=== PATIENT | female | born 1940 | race Caucasian/White ===

== ENCOUNTER 2022-07-27 16:01 | Emergency (ER) | payer MEDICARE, SELFPAY ==
--- NOTE | ~2022-07-27 | XR_ITS ---
EXAMINATION: XR chest 2V DATE: 07/27/2022 16:55 INDICATION: Cough and shortness of breath TECHNIQUE: PA and lateral views of the chest are obtained. COMPARISON: None available FINDINGS: The lungs are free of acute opacities. No pleural effusion or pneumothorax. The cardiomedia stinal silhouette is normal. There is moderate thoracic spondylosis. Surgical changes are noted in th e upper abdomen. IMPRESSION: 1. No acute cardiopulmonary abnormality. Reviewed, dictated and finalized at location B.
[2022-07-27 16:20] VITALS: BP 125/65; PULSE 86; RESP 16; TEMP 37.1; O2SAT 97
--- NOTE | 2022-07-27 16:23 | ECG_ITS ---
Measurements Intervals [place] Rate: 80 P: 18 NM: 174 QRS: -13 QRSD: 125 T: 0 QT: 389 QTc: 450 Interpretive Statements SINUS RHYTHM VENTRICULAR PREMATURE COMPLEX RIGHT BUNDLE BRANCH BLOCK ABNORMAL ECG NO PREVIOUS ECG AVAILABLE FOR COMPARISON Electronically Signed On 07-27-2022 20:57:02 CDT by Ruddy Early D.O.
[2022-07-27 16:40] LABS: Basophils Percent Auto 0.4 % (0.2-1.2); Eosinophils Percent Auto 1.4 % (0-4.4); Hematocrit 26.8 % (37.0-47.0); Hemoglobin 7.8 g/dL (12.0-15.0); Immature Granulocyte Absolute 0.01 K/mm3 (0.00-0.031); Immature Granulocyte Percent A 0.4 % (0-0.5); Lymphocytes Absolute Auto 0.36 K/mm3 (0.9-3.2); Mean Corpuscular HGB Conc 29.1 g/dl (32-36); Mean Corpuscular Hemoglobin 20.6 pg (26-34); Mean Corpuscular Volume 70.7 fl (80-100); Mean Platelet Volume 10.8 fl (7.4-10.4); Monocytes Absolute Auto 0.4 K/mm3 (0.1-0.6); Monocytes Percent Auto 14.9 % (2.6-8.5); Neutrophils Absolute Auto 1.9 K/mm3 (1.3-6.7); Neutrophils Percent Auto 69.9 % (45.5-73.1); Platelet Count Result 186 k/mm3 (150-375); Red Blood Count 3.79 M/mm3 (4.2-5.4); Red Cell Distribution Width 18.4 % (11.5-14.5); White Blood Count 2.8 K/mm3 (4.5-10.0)
[2022-07-27 16:55] LABS: Alanine Aminotransferase 32 U/L (6-35); Albumin Level 3.4 g/dL (3.5-5.1); Alkaline Phosphatase 187 U/L (38-126); Anion Gap 10 mmol/L (8-16); Aspartate Amino Transferase 83 U/L (14-36); Bilirubin,Total 0.4 mg/dL (0.2-1.3); Blood Urea Nitrogen 19 mg/dL (7-17); Calcium 8.1 mg/dL (8.4-10.2); Carbon Dioxide 23 mmol/L (22-30); Chloride 98 mmol/L (98-107); Estimated Glomerular Filt Rate > 60; Glucose 145 mg/dL (65-110); Potassium 4.5 mmol/L (3.4-5.0); Sodium 131 mmol/L (137-145)
[2022-07-27 17:06] LABS: Platelet Estimate Adequate (Adequate)
[2022-07-27 17:07] LABS: Anisocytosis 2+ (NORMAL); Hypochromasia 1+ (NORMAL)
[2022-07-27 17:08] LABS: Ovalocytes 1+ (NORMAL)
[2022-07-27 17:16] LABS: SARS-CoV-2 RNA PCR Positive
[2022-07-27 19:37] VITALS: BP 122/67; PULSE 76; RESP 18; O2SAT 98
--- NOTE | 2022-07-27 20:14 | ED.GENADULT ---
HPI - General Adult General Chief complaint: Shortness of Breath/Dyspnea Stated complaint: Cough, SOB Time Seen by Provider: 07/27/22 19:46 History of Present Illness HPI narrative: This is an 82-year-old female presenting ED with chief complaint of cough and shortness breath x4 days. Patient says that her daughter was recently diagnosed with COVID. Since then she has been having a dry cough, shortness of breath, fever chills and generalized weakness. Patient states that her condition has been improving at this time she feels well. Patient has a history of liver cancer which she has undergone chemo with her last treatment being 3-4 weeks ago. Oncologist is at [facility]. Patient has been vaccinated against COVID-19 and boosted. The patient denies nausea vomiting diarrhea. She has been having adequate p.o. intake. Review of Systems Review of Systems: CONSTITUTIONAL: Denies night sweats. EYES: No eye pain ENT: Denies rhinorrhea CARDIOVASCULAR: Denies palpitations RESPIRATORY: Denies hemoptysis GASTROINTESTINAL: Denies hematemesis GENITOURINARY: Denies hematuria. SKIN: Denies rash MUSCULOSKELETAL: Denies myalgia. NEUROLOGIC: Denies weakness. PSYCHIATRIC: Denies delusions [facility] Past Medical History Medical History Coronary artery disease Diabetes HTN (hypertension) Liver cancer Social History Social History (Updated 07/27/22 @ 20:21 by Alfonso Clinton MD) Social History: Patient denies alcohol tobacco or drug use. Exam Narrative: APPEARANCE: No apparent distress. Patient is very polite during her interview. She is speaking to me in full sentences. Head atraumatic. EYES: PERRLA/EOMI, NOSE: Normal no drainage NECK: Supple, Trachea midline RESPIRATORY: Patient's lung sounds are clear in all [place]. She has no increased work of breathing. She is 98% on room air. She is speaking to me in full sentences without any evidence of dyspnea. CARDIOVASCULAR: S1S2 appreciated , no peripheral edema ABDOMINAL: Soft, nontender, nondistended, MUSCULOSKELETAl: No obvious deformities NEURO: Alert. Moving 4/4 extremities SKIN:: Warm, dry. Normal color PSYCHIATRIC: Normal affect Course Vital Signs Vital signs: Vital Signs Temperature 98.7 F 07/27/22 16:20 Pulse Rate 86 07/27/22 16:20 Respiratory Rate 16 07/27/22 16:20 Blood Pressure 125/65 07/27/22 16:20 Pulse Oximetry 97 07/27/22 16:20 Oxygen Delivery Room Air 07/27/22 16:20 Temperature 98.7 F 07/27/22 16:20 Pulse Rate 76 07/27/22 19:37 Respiratory Rate 18 07/27/22 19:37 Blood Pressure 122/67 07/27/22 19:37 Pulse Oximetry 98 07/27/22 19:37 Oxygen Delivery Room Air 07/27/22 16:20 Medical Decision Making MDM Narrative Medical decision making narrative: This is an 82-year-old female presenting to the ED with 4 days of COVID-19 infection. While patient was reporting shortness of breath over the 1st 2 days she says that she has improved drastically since then. The patient has been undergoing chemo and is pancytopenic with a WBC of 2.8, hemoglobin of 7.8. However she is well-appearing and afebrile at this time with stable vital signs and not requiring supplementary oxygen. her chest x-ray has no evidence of infiltrates. I discussed the option of admitting her to observation versus discharging her home the patient would prefer to go home. She has been given strict return precautions for condition has worsened to return emergency department immediately. The patient has a history of liver cancer and is fully vaccinated and boosted will not be pursuing Paxlovid on an outpatient basis. Vital Signs Vital Signs: Vital Signs Temperature 98.7 F 07/27/22 16:20 Pulse Rate 86 07/27/22 16:20 Respiratory Rate 16 07/27/22 16:20 Blood Pressure 125/65 07/27/22 16:20 Pulse Oximetry 97 07/27/22 16:20 Oxygen Delivery Room Air 07/27/22 16:20 Temperature 98.7 F
== END 2022-07-27 20:34 | disposition home or self-care (01) ==
PROVIDERS: Emergency Medicine; Emergency Provider Emergency Medicine
DX: U07.1 COVID-19 (principal); C22.9 Malignant neoplasm of liver, not specified as primary or secondary; E11.9 Type 2 diabetes mellitus without complications; I10 Essential (primary) hypertension; D61.818 Other pancytopenia; R94.31 Abnormal electrocardiogram [ECG] [EKG]
CPT/HCPCS: 36415; 71046; 80053; 85025; 93005; 99283; C9803; U0003; U0005

== ENCOUNTER 2023-02-09 13:38 | Emergency (ER) | payer MEDICARE, SELFPAY ==
--- NOTE | ~2023-02-09 | CT_ITS ---
EXAMINATION: CT abdomen pelvis wo con DATE: 02/09/2023 14:52 INDICATION: Right flank pain TECHNIQUE: Computed tomography (CT) of the abdomen and pelvis was performed without intravenous contr ast. The dose-length product was 212.06 mGy-cm. Automated exposure control and iterative reconstructi on technique were employed. COMPARISON: No prior studies for comparison. . FINDINGS: Small right pleural effusion. Right lower lobe atelectasis. Heart size normal. Moderate ath erosclerosis without evidence for aneurysm. There is atrophy of the right abdominal wall musculature. There is probable cirrhosis of the liver. There is a 9 mm densely calcified splenic artery aneurysm. There is a second calcified aneurysm measuring 11 mm There are calcified upper abdominal lymph nodes , likely chronic granulomatous disease. There are calcified granulomas of the right kidney. There is splenomegaly. There is atrophy of the right kidney. There are multiple nonobstructing right renal sto dominick. No ureteral stones or significant hydronephrosis. Nonobstructive bowel gas pattern. There is a s oft tissue nodule adjacent to the lower liver margin laterally measuring 1.5 cm, image 54. There post operative changes consistent with gastric bypass. There are multiple mesenteric lymph nodes, nonspeci fic. Mild superior endplate compression deformity of L4, likely chronic. The appendix is not positive ly visualized. There is no pericecal inflammatory change to suggest appendicitis. Nonobstructive bow el pattern. IMPRESSION: 1. Nonobstructing right nephrolithiasis. No hydronephrosis. 2: Small right pleural effusion. 3: Probable cirrhosis of the liver with splenomegaly. 4: Soft tissue nodule right upper abdomen adjacent to the liver margin measuring 1.5 cm, likely a lym ph node. Mild mesenteric lymphadenopathy. 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 Reviewed, dictated and finalized at location A. IMPRESSION: 1. Nonobstructing right nephrolithiasis. No hydronephrosis. 2: Small right pleural effusion. 3: Probable cirrhosis of the liver with splenomegaly. 4: Soft tissue nodule right upper abdomen adjacent to the liver margin measurin g 1.5 cm, likely a lymph node. Mild mesenteric lymphadenopathy. 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
[2023-02-09 13:41] VITALS: BP 171/77; PULSE 76; RESP 18; TEMP 36.8; O2SAT 100
--- NOTE | 2023-02-09 14:17 | ED.BACK ---
HPI - Back Pain/Injury General Chief Complaint: Back Pain/Injury Stated Complaint: right flank pain for four months Time Seen by Provider: 02/09/23 13:57 History of Present Illness HPI Narrative: 82-year-old female presents to the emergency room today for complaints of right flank pain. She says that she has been having this pain for the past 4 months ever since she had a fall. She did not see anybody immediately after the fall but did go to [facility] in [place] about 2 months ago. She said that they did x-rays there. She was admitted at that time due to anemia and needing blood transfusion. She says that they thought she may have had a bleeding ulcer. She says that she has been taking ibuprofen as needed for the pain. No dysuria or hematuria. Pt has a history of liver cancer. Related Data Allergies Allergy/AdvReac Type Severity Reaction Status Date / Time No Known Allergies Allergy Verified 02/09/23 14:21 Review of Systems Review of Systems: CONSTITUTIONAL: Denies fever, chills, or sweats. EYES: Denies visual changes, redness, or discharge. ENT: Denies rhinorrhea, congestion, sore throat, or otalgia. CARDIOVASCULAR: Denies chest pain, palpitations, or edema. RESPIRATORY: Denies cough or dyspnea. GASTROINTESTINAL: Denies abdominal pain, nausea, vomiting, or diarrhea. GENITOURINARY: Denies dysuria or hematuria. SKIN: Denies rash or itching. MUSCULOSKELETAL: right flank pain NEUROLOGIC: Denies headache, numbness, dizziness, or weakness. PSYCHIATRIC: Denies anxiety or depression. PMFSH Past Medical History Medical History Coronary artery disease Diabetes HTN (hypertension) Liver cancer Social History Social History Social History: Patient denies alcohol tobacco or drug use. Exam Narrative: GENERAL: Well-appearing, well-nourished, and in no acute distress. HEAD: Normocephalic, atraumatic. EYES: PERRLA and EOMI. NECK: Supple. No adenopathy or masses. No carotid bruits or JVD CHEST: Clear to auscultation. No respiratory distress. No wheezes rales or rhonchi HEART: Regular rate and rhythm. No murmur heard. Normal peripheral pulses. ABDOMEN: Soft, nontender, nondistended, normal active bowel sounds. right flank tenderness Back: No midline spine tenderness EXTREMITIES: Normal range of motion. No edema. SKIN: Warm, dry, no rash. Pale. NEURO: No focal deficits. Alert and oriented x3. PSYCH: Normal mood and affect. Course Vital Signs Vital signs: Vital Signs Temperature 36.8 C 02/09/23 13:41 Pulse Rate 76 02/09/23 13:41 Respiratory Rate 18 02/09/23 13:41 Blood Pressure 171/77 H 02/09/23 13:41 Pulse Oximetry 100 02/09/23 13:41 Oxygen Delivery Room Air 02/09/23 13:41 Temperature 36.8 C 02/09/23 13:41 Pulse Rate 76 02/09/23 13:41 Respiratory Rate 18 02/09/23 13:41 Blood Pressure 171/77 H 02/09/23 13:41 Pulse Oximetry 100 02/09/23 13:41 Oxygen Delivery Room Air 02/09/23 13:41 MDM - Back Pain/Injury MDM Narrative Medical decision making narrative: No findings on work up to explain patient pain. All results discussed with patient. She is aware of abnormal liver and spleen findings. She reports that she has an upcoming visit with her liver specialist in the next couple of weeks. Differential Diagnosis Differential diagnosis: Likely lumbar radiculopathy, strain of lumbar region, renal colic, pyelonephritis and thoracic back pain Lab Data Attestation: I reviewed the patient's lab results. 02/09/23 14:41 02/09/23 14:41 Labs: Lab Results 02/09/23 02/09/23 02/09/23 Range/Units 14:41 14:41 16:02 WBC 4.3 L (4.5-10.0) K/mm3 RBC 4.08 L (4.2-5.4) M/mm3 Hgb 8.3 L (12.0-15.0) g/dL Hct 29.3 L (37.0-47.0) % MCV 71.8 L (80-100) fl MCH 20.3 L (26-34) pg MCHC 28.3 L (32-36) g/dl RDW 20.2 H
[2023-02-09] MEDS: HYDROcodone/acetaminophen (*CRX) 5-325 MG TABLET 1 TAB PO (14:45)
[2023-02-09] MEDS: Please add drug allergy info to patient profile. 1 EACH XX (14:45)
[2023-02-09 14:49] LABS: Basophils Percent Auto 0.5 % (0.2-1.2); Eosinophils Percent Auto 0.9 % (0-4.4); Hematocrit 29.3 % (37.0-47.0); Hemoglobin 8.3 g/dL (12.0-15.0); Immature Granulocyte Absolute 0.01 K/mm3 (0.00-0.031); Immature Granulocyte Percent A 0.2 % (0-0.5); Lymphocytes Absolute Auto 0.49 K/mm3 (0.9-3.2); Lymphocytes Percent Auto 11.4 % (18.3-44.2); Mean Corpuscular HGB Conc 28.3 g/dl (32-36); Mean Corpuscular Hemoglobin 20.3 pg (26-34); Mean Corpuscular Volume 71.8 fl (80-100); Monocytes Absolute Auto 0.4 K/mm3 (0.1-0.6); Monocytes Percent Auto 9.1 % (2.6-8.5); Neutrophils Absolute Auto 3.4 K/mm3 (1.3-6.7); Neutrophils Percent Auto 77.9 % (45.5-73.1); Platelet Count Result 168 k/mm3 (150-375); Red Blood Count 4.08 M/mm3 (4.2-5.4); Red Cell Distribution Width 20.2 % (11.5-14.5); White Blood Count 4.3 K/mm3 (4.5-10.0)
[2023-02-09 15:03] LABS: Alanine Aminotransferase 51 U/L (6-35); Albumin Level 4.1 g/dL (3.5-5.1); Alkaline Phosphatase 443 U/L (38-126); Anion Gap 8 mmol/L (8-16); Aspartate Amino Transferase 155 U/L (14-36); Bilirubin,Total 0.8 mg/dL (0.2-1.3); Blood Urea Nitrogen 18 mg/dL (7-17); Calcium 8.9 mg/dL (8.4-10.2); Carbon Dioxide 26 mmol/L (22-30); Chloride 101 mmol/L (98-107); Estimated Glomerular Filt Rate > 60; Glucose 216 mg/dL (65-110); Sodium 135 mmol/L (137-145)
[2023-02-09 15:15] LABS: Platelet Estimate Adequate (Adequate)
[2023-02-09 15:16] LABS: Anisocytosis 1+ (NORMAL); Hypochromasia 1+ (NORMAL); Ovalocytes 1+ (NORMAL); Schistocytes None Seen (NORMAL)
[2023-02-09 16:13] LABS: Appearance Urine Cloudy (Clear); Bacteria Urine 4+ /hpf; Bilirubin Urine Negative (Negative); Blood Urine Negative (Negative); Color Urine Dark Yellow (Yellow); Glucose Urine UA 2+ mg/dL (Negative); Ketones Urine Negative (Negative); Leukocyte Esterase Ur Trace LEU/UL (Negative); Nitrate Urine Negative (Negative); Non Pathogenic Casts 0-2; Protein Urine Trace mg/dL (Negative); RBC Urine 0-2 /hpf (0-2); Specific Grav Ur 1.033 (1.001-1.035); Squamous Epithelial Cell Urine Few /hpf (Few); pH Urine 5.5 (5.0-9.0)
[2023-02-09 16:19] LABS: Add Urine Microscopic? YES
== END 2023-02-09 16:34 | disposition home or self-care (01) ==
PROVIDERS: Emergency Provider Nurse Practitioner Family; PCP Family Medicine
DX: R10.9 Unspecified abdominal pain (principal); G89.29 Other chronic pain; I25.10 Atherosclerotic heart disease of native coronary artery without angina pectoris; I10 Essential (primary) hypertension; E11.9 Type 2 diabetes mellitus without complications; Z85.05 Personal history of malignant neoplasm of liver; N20.0 Calculus of kidney; I72.8 Aneurysm of other specified arteries; R93.5 Abnormal findings on diagnostic imaging of other abdominal regions, including retroperitoneum; R93.2 Abnormal findings on diagnostic imaging of liver and biliary tract
CPT/HCPCS: 36415; 74176; 80053; 81001; 85025; 85055; 87086; 99284; A9270

== ENCOUNTER 2023-02-20 08:36 | Emergency (ER) | payer MEDICARE, SELFPAY ==
--- NOTE | ~2023-02-20 | CT_ITS ---
EXAMINATION: CTA chest abdomen pelvis DATE: 02/20/2023 10:06 INDICATION: Epigastric and chest pain. Evaluate for possible aortic dissection. TECHNIQUE: Computed tomography angiography (CTA) of the chest, abdomen and pelvis was performed with 100 mL Omnipaque-350 intravenous contrast timed to evaluate the pulmonary arteries. Coronal maximum i ntensity projection 3D-reconstructions were created by the technologist. Automated exposure control a nd iterative reconstruction technique were employed. Exam dose: 426.99 mGy-cm total exam DLP. COMPARISON: 02/09/2023 CT abdomen pelvis FINDINGS: No thoracic aortic aneurysm or dissection. No abdominal aortic aneurysm or dissection. Large right pleural effusion with prominent right lower lobe atelectasis. There is mild dependent ate lectasis of the right upper lobe. The lungs are otherwise essentially clear. No hilar or mediastinal mass lesion or lymphadenopathy is detected. There is extensive abnormal heterogeneous density of the hepatic dome suggesting large hepatocellular carcinoma, with abnormal irregular nodular soft tissue thickening of the right diaphragm suggesting tumor invasion. In addition, there is evidence of peritoneal mass in the paracolic gutter area in the right upper quadrant, suggesting metastatic malignancy. There is a 2.3 x 2.2 cm mass density between the inferomedial aspect of the liver and anterior upper pole the right kidney, the lateral margin of the right adrenal gland. Differential diagnosis includes hepatic neoplasm, exophytic hypernephroma, metastatic adenopathy. Surface nodularity of the liver suggests cirrhosis. There is splenomegaly. There are prominent varice s along the distal esophagus and upper abdominal varices. MR liver examination is recommended. There is mild ascites along the lateral aspect of the liver and in the right paracolic gutter, with m inimal free fluid in the pelvis. No pancreatic mass lesion, calcification or pancreatic duct dilatation is detected. Pinpoint nonobstructing lower pole right renal calculus. 10 mm right renal cyst. Scarring at the lowe r pole of the right kidney. The left kidney is unremarkable. No hydronephrosis of either kidney. The urinary bladder is unremarka ble. Calcified uterine fibroid. Normal caliber of the abdominal aorta. Otherwise no intraperitoneal or retroperitoneal or pelvic mass lesion or adenopathy. Status post right partial colectomy. No bowel obstruction or intraperitoneal free air. Likely chronic mild anterior wedging at T11. Severe degenerative disc disease at T11-12 and L5-S1. Mild likely chronic compression fracture deformity of L4. Degenerative changes apophyseal joints in the lower lumbar and lumbosacral area with associated grade 1 anterolisthesis at L4-5. IMPRESSION: Large right hepatocellular carcinoma is suspected, with invasion diaphragm and right upp er quadrant peritoneum 2.3 cm mass between the liver and kidney which may be of hepatic origin or possibly exophytic hyperne phroma Cirrhosis, splenomegaly, varices, consistent with portal venous hypertension Consider MR liver for further examination Large right pleural effusion, right lower lobe atelectasis No thoracic or abdominal aortic aneurysm or dissection Pinpoint nonobstructing right renal calculus 10 mm right renal cyst Mild right renal scarring Calcified uterine fibroid Reviewed, dictated and finalized at Location A. Reviewed, dictated and finalized at location A. IMPRESSION: Large right hepatocellular carcinoma is suspected, with invasion d iaphragm and right upper quadrant peritoneum 2.3 cm mass between the liver and kidney which may be of hepatic origin or poss ibly exophytic hypernephroma Cirrhosis, splenomegaly, varices, consistent with
[2023-02-20 08:38] VITALS: BP 163/84; PULSE 68; RESP 16; TEMP 36.6; O2SAT 98
[2023-02-20 08:52] VITALS: BP 147/77; PULSE 67; RESP 15; O2SAT 99
[2023-02-20 09:10] LABS: Basophils Percent Auto 0.4 % (0.2-1.2); Eosinophils Absolute Auto 0.1 K/mm3 (0-0.3); Eosinophils Percent Auto 2.2 % (0-4.4); Hemoglobin 8.1 g/dL (12.0-15.0); Immature Granulocyte Absolute 0.01 K/mm3 (0.00-0.031); Immature Granulocyte Percent A 0.2 % (0-0.5); Immature Platelet Fraction Pct 4.6 % (0.9-11.2); Lymphocytes Absolute Auto 0.71 K/mm3 (0.9-3.2); Lymphocytes Percent Auto 15.3 % (18.3-44.2); Mean Corpuscular HGB Conc 27.9 g/dl (32-36); Mean Corpuscular Hemoglobin 19.6 pg (26-34); Mean Corpuscular Volume 70.2 fl (80-100); Mean Platelet Volume 10.7 fl (7.4-10.4); Monocytes Absolute Auto 0.4 K/mm3 (0.1-0.6); Monocytes Percent Auto 9.5 % (2.6-8.5); Neutrophils Absolute Auto 3.4 K/mm3 (1.3-6.7); Neutrophils Percent Auto 72.4 % (45.5-73.1); Platelet Count Result 283 k/mm3 (150-375); Red Blood Count 4.13 M/mm3 (4.2-5.4); Red Cell Distribution Width 19.9 % (11.5-14.5); White Blood Count 4.6 K/mm3 (4.5-10.0)
[2023-02-20 09:18] LABS: Alanine Aminotransferase 32 U/L (6-35); Albumin Level 3.6 g/dL (3.5-5.1); Alkaline Phosphatase 463 U/L (38-126); Anion Gap 2 mmol/L (8-16); Aspartate Amino Transferase 88 U/L (14-36); Bilirubin,Total 0.7 mg/dL (0.2-1.3); Blood Urea Nitrogen 19 mg/dL (7-17); Calcium 8.6 mg/dL (8.4-10.2); Carbon Dioxide 29 mmol/L (22-30); Chloride 103 mmol/L (98-107); Estimated Glomerular Filt Rate > 60; Glucose 175 mg/dL (65-110); Lipase 99 U/L (23-300); Potassium 4.1 mmol/L (3.4-5.0); Sodium 134 mmol/L (137-145)
--- NOTE | 2023-02-20 09:23 | ECG_ITS ---
Measurements Intervals [place] Rate: 65 P: 16 LA: 189 QRS: -14 QRSD: 135 T: 19 QT: 451 QTc: 470 Interpretive Statements SINUS RHYTHM RIGHT BUNDLE BRANCH BLOCK ABNORMAL ECG COMPARED TO ECG 07/27/2022 16:27:02 NO SIGNIFICANT CHANGES Electronically Signed On 02-20-2023 15:32:04 CDT by Kris Montague M.D.
--- NOTE | 2023-02-20 09:33 | ED.ABDPAIN ---
HPI - Abdominal Pain General Chief Complaint: Abdominal Pain <Edgar Michel PA-C - Last Filed: 02/20/23 19:05> Stated Complaint: indigestion - woke w/ symptoms <MARKO Galvez Last Filed: 02/20/23 19:05> Time Seen by Provider: 02/20/23 08:58 <Edgar Michel PA-C - Last Filed: 02/20/23 19:05> Source: patient <MARKO Galvez Last Filed: 02/20/23 19:05> Mode of arrival: ambulatory <MARKO Galvez Last Filed: 02/20/23 19:05> Limitations: no limitations <MARKO Galvez Last Filed: 02/20/23 19:05> History of Present Illness HPI narrative: This is a 82-year-old female with past medical history of cirrhosis, liver cancer, diabetes, HTN, CAD who presents to the ED with chief complaint of epigastric pain beginning this morning after waking up. Patient states that she feels like she has indigestion, however it is worse than she has had in the past. She tried Tums with no relief. States the pain is located in the epigastrium and radiates superiorly into the central chest area. No further radiation of pain. Also endorses constipation with last bowel movement yesterday. Denies shortness of breath. Denies nausea/vomiting/diarrhea. Denies fevers, chills. <MARKO Galvez Last Filed: 02/20/23 19:05> Related Data Home Medications: Home Medications Medication Instructions Recorded Confirmed diclofenac sodium 1 % topical gel 2 g topical QID 02/19/23 02/19/23 mecobalamin (vitamin B12) 5,000 5,000 mcg PO DAILY 02/19/23 02/19/23 mcg chewable tablet metformin 500 mg tablet 1,000 mg PO DAILY 02/19/23 02/19/23 pantoprazole 40 mg tablet,delayed 40 mg PO QAM 02/19/23 02/19/23 release polysaccharide iron complex 150 mg 150 mg PO DAILY 02/19/23 02/19/23 iron capsule trazodone 150 mg tablet 150 mg PO QHS PRN 02/19/23 02/19/23 <Edgar Michel PA-C - Last Filed: 02/20/23 19:05> Allergies/Adverse Reactions: Allergies Allergy/AdvReac Type Severity Reaction Status Date / Time No Known Allergies Allergy Verified 02/20/23 08:40 <Edgar Michel PA-C - Last Filed: 02/20/23 19:05> Review of Systems Review of Systems: CONSTITUTIONAL: Denies fever, chills, or sweats. EYES: Denies visual changes, redness, or discharge. ENT: Denies rhinorrhea, congestion, sore throat, or otalgia. CARDIOVASCULAR: Denies chest pain, palpitations, or edema. RESPIRATORY: Denies cough or dyspnea. GASTROINTESTINAL: Endorses abdominal pain. denies nausea, vomiting, or diarrhea. GENITOURINARY: Denies dysuria or hematuria. SKIN: Denies rash or itching. MUSCULOSKELETAL: Denies back pain, joint pain, or myalgia. NEUROLOGIC: Denies headache, numbness, dizziness, or weakness. PSYCHIATRIC: Denies anxiety or depression. <Edgar Michel PA-C - Last Filed: 02/20/23 19:05> [facility] Past Medical History Medical History: Medical History (Updated 02/20/23 @ 12:31 by Edgar Michel PA-C) Cirrhosis of liver Coronary artery disease Diabetes HTN (hypertension) Liver cancer Tachycardia <Edgar Michel PA-C - Last Filed: 02/20/23 19:05> Social History Social History: Social History Social History: Patient denies alcohol tobacco or drug use. Smoking status: Never smoker Second hand tobacco smoke exposure: No Alcohol intake: never Substance use: never Substance use type: does not use Lack of Transportation: No Lack of Food: Never True Current Housing: I Have Housing Concerned About Future Housing: No Difficulty Paying Gas/Electric Bills: No Difficulty Paying for Meds: No Currently Unemployed: No Difficulty w/ Childcare or Family Care: No Living arrangements: with family Occupation/Education: retired Gender identity (if verbalized by the patient): Female Sexual Orientation (if Verbalized by the Patient): Straight or Heterosexual Spiritual care concerns: No <Edgar Michel PA-C - Last
[2023-02-20] MEDS: MAG HYDROX/AL HYDROX/SIMETH 30 ML UDC PO (09:39)
--- NOTE | 2023-02-20 09:39 | PC.NURSE ---
pt unable to provide urine sample at this time. Pt stated she believes she will be able to go in a few minutes .
[2023-02-20 09:49] LABS: Anisocytosis 1+ (NORMAL); Hypochromasia 1+ (NORMAL); Ovalocytes 1+ (NORMAL); Platelet Estimate Adequate (Adequate)
[2023-02-20 09:50] LABS: Burr Cells 1+ (NORMAL); Schistocytes None Seen (NORMAL)
[2023-02-20 09:58] LABS: Troponin I < 0.012 ng/mL (0.000-0.034)
[2023-02-20 10:15] LABS: Appearance Urine Clear (Clear); Bacteria Urine None Seen /hpf; Bilirubin Urine Negative (Negative); Blood Urine Negative (Negative); Color Urine Yellow (Yellow); Glucose Urine UA Negative (Negative); Ketones Urine Trace mg/dL (Negative); Leukocyte Esterase Ur Trace LEU/UL (Negative); Nitrate Urine Negative (Negative); Non Pathogenic Casts 0-2; Protein Urine Negative (Negative); RBC Urine 0-2 /hpf (0-2); Specific Grav Ur 1.029 (1.001-1.035); Squamous Epithelial Cell Urine None seen /hpf (Few)
[2023-02-20 10:19] LABS: Add Urine Microscopic? YES
[2023-02-20 11:00] VITALS: BP 155/67; PULSE 66; RESP 18; O2SAT 97
[2023-02-20 11:45] VITALS: BP 144/55; PULSE 66; RESP 18; O2SAT 97
[2023-02-20 12:24] LABS: Troponin I < 0.012 ng/mL (0.000-0.034)
[2023-02-20 13:04] VITALS: BP 146/63; PULSE 67; RESP 18; O2SAT 99
== END 2023-02-20 13:05 | disposition home or self-care (01) ==
PROVIDERS: Emergency Medicine; Emergency Provider Physician Assistant; PCP Family Medicine
DX: K21.9 Gastro-esophageal reflux disease without esophagitis (principal); C22.9 Malignant neoplasm of liver, not specified as primary or secondary; K74.60 Unspecified cirrhosis of liver; E11.9 Type 2 diabetes mellitus without complications; I10 Essential (primary) hypertension; I25.10 Atherosclerotic heart disease of native coronary artery without angina pectoris; Z79.84 Long term (current) use of oral hypoglycemic drugs
CPT/HCPCS: 36415; 71275; 74174; 80053; 81001; 83690; 84484; 85025; 85055; 87086; 87088; 93005; 99284; A9270; Q9967

== ENCOUNTER 2023-03-20 10:14 | Observation (INO) | payer MEDICARE, SELFPAY ==
[2023-03-20] VITALS (23 sets, daily range): BP systolic 116–158; BP diastolic 41–75; PULSE 63–80; RESP 14–27; TEMP 36–36.9; O2SAT 94–99; BMI 26.0
--- NOTE | ~2023-03-20 | US_ITS ---
EXAMINATION: US venous doppler [facility] DATE: 03/21/2023 10:53 INDICATION: Lower limb edema. TECHNIQUE: Grayscale ultrasound images without and with compression and Doppler ultrasound images of the bilateral lower extremity veins were obtained. COMPARISON: None. FINDINGS: The visualized portions of right common femoral vein, profunda (deep) femoral vein, femoral vein, pop liteal vein, peroneal veins, posterior tibial veins, and greater saphenous vein outflow are patent. The visualized portions of left common femoral vein, profunda femoral vein, femoral vein, popliteal v ein, peroneal veins, posterior tibial veins, and greater saphenous vein outflow are patent. IMPRESSION: 1. No deep venous thrombosis. Reviewed, dictated and finalized at location A.
--- NOTE | ~2023-03-20 | XR_ITS ---
EXAMINATION: XR chest 2V DATE: 03/20/2023 11:16 INDICATION: Anxiety. Back pain. TECHNIQUE: Frontal and lateral views of the chest were obtained. COMPARISON: Chest 2 views 07/27/2022, CT abdomen and pelvis 02/20/2023 FINDINGS: There are moderate-sized right and trace left pleural effusions. There are airspace opaciti es at right lung base. No pneumothorax. The heart size is normal. There are surgical clips in the abd omen. IMPRESSION: 1. Moderate-sized right and trace left pleural effusions, stable from 02/20/2023. 2. Airspace opacities at right lung base, consistent with atelectasis versus pneumonia. Reviewed, dictated and finalized at location A. IMPRESSION: 1. Moderate-sized right and trace left pleural effusions, stable from 02/20/2023. 2. Airspace opacities at right lung base, consistent with atelectasis versus pn eumonia.
--- NOTE | 2023-03-20 10:29 | ECG_ITS ---
Measurements Intervals [place] Rate: 71 P: 6 ND: 190 QRS: -22 QRSD: 145 T: -7 QT: 455 QTc: 495 Interpretive Statements SINUS RHYTHM RIGHT BUNDLE BRANCH BLOCK ABNORMAL ECG COMPARED TO ECG 02/20/2023 10:08:53 NO SIGNIFICANT CHANGES Electronically Signed On 03-20-2023 15:57:20 CDT by Ruddy Early D.O.
[2023-03-20] MEDS: ONDANSETRON INJ 4 MG/2 ML VIAL IV PUSH (10:38)
[2023-03-20 10:46] LABS: Basophils Percent Auto 0.5 % (0.2-1.2); Eosinophils Absolute Auto 0.1 K/mm3 (0-0.3); Eosinophils Percent Auto 0.8 % (0-4.4); Hemoglobin 8.1 g/dL (12.0-15.0); Immature Granulocyte Absolute 0.03 K/mm3 (0.00-0.031); Immature Granulocyte Percent A 0.4 % (0-0.5); Immature Platelet Fraction Pct 4.8 % (0.9-11.2); Lymphocytes Percent Auto 8.3 % (18.3-44.2); Mean Corpuscular HGB Conc 27.9 g/dl (32-36); Mean Corpuscular Hemoglobin 18.9 pg (26-34); Mean Corpuscular Volume 67.6 fl (80-100); Mean Platelet Volume 10.2 fl (7.4-10.4); Monocytes Absolute Auto 0.7 K/mm3 (0.1-0.6); Monocytes Percent Auto 8.4 % (2.6-8.5); Neutrophils Absolute Auto 6.9 K/mm3 (1.3-6.7); Neutrophils Percent Auto 81.6 % (45.5-73.1); Platelet Count Result 228 k/mm3 (150-375); Red Blood Count 4.29 M/mm3 (4.2-5.4); Red Cell Distribution Width 18.8 % (11.5-14.5); White Blood Count 8.5 K/mm3 (4.5-10.0)
--- NOTE | 2023-03-20 10:55 | ED.GENADULT ---
HPI - General Adult General Chief complaint: Unspecified Stated complaint: I feel like I'm dying Time Seen by Provider: 03/20/23 10:15 History of Present Illness HPI narrative: 82-year-old female with a history of hepatocellular carcinoma here for evaluation of anxiety. Patient states that she has felt panic and a general sensation of doom over the past week or so. She has a lot of anxiety around her health issues, which include hepatocellular carcinoma, CAD, DM. She is seeing a GI doctor at [facility] and does not take any medicines for HCC. Patient denies any specific complaints, particularly she denies any chest pain, shortness of breath. She has chronic abdominal and back pain, no worse than usual. She reports a little bit of nausea but no vomiting. She has had no fevers, chills, suicidal or homicidal ideation. She denies any illicit drug or alcohol use presently or in the past. Patient is a poor historian. she was seen here 02/15/23 and was found to have recurrence of her HCC with invasion into the diaphragm. This was discussed with her GI doctor at [facility] who agreed with outpatient f/u but she is unsure what was done. She is not currently on any treatment for this, believes chemotherapy may be started this month. Related Data Home Medications Medication Instructions Recorded Confirmed diclofenac sodium 1 % topical gel 2 g topical QID 02/19/23 02/19/23 mecobalamin (vitamin B12) 5,000 5,000 mcg PO DAILY 02/19/23 02/19/23 mcg chewable tablet metformin 500 mg tablet 1,000 mg PO DAILY 02/19/23 02/19/23 pantoprazole 40 mg tablet,delayed 40 mg PO QAM 02/19/23 02/19/23 release polysaccharide iron complex 150 mg 150 mg PO DAILY 02/19/23 02/19/23 iron capsule trazodone 150 mg tablet 150 mg PO QHS PRN 02/19/23 02/19/23 Allergies Allergy/AdvReac Type Severity Reaction Status Date / Time No Known Allergies Allergy Verified 03/20/23 10:21 Review of Systems Review of Systems: Gen.: Denies fevers or chills Eyes: Denies eye pain or visual change ENT: Denies congestion Respiratory: Denies shortness of breath or cough CV: Denies chest pain or palpitations GI: reports chronic abdominal pain and nausea denies burning, urgency, frequency or hematuria Musculoskeletal: Denies back pain or muscle pain Neuro: Denies numbness, tingling, weakness or focal weakness Skin: Denies rash Psych: Reports anxiety Except as documented, all other systems reviewed and negative [facility] Past Medical History Medical History Cirrhosis of liver Coronary artery disease Diabetes HTN (hypertension) Liver cancer Tachycardia Social History Social History Social History: Patient denies alcohol tobacco or drug use. Smoking status: Never smoker Second hand tobacco smoke exposure: No Alcohol intake: never Substance use: never Substance use type: does not use Lack of Transportation: No Lack of Food: Never True Current Housing: I Have Housing Concerned About Future Housing: No Difficulty Paying Gas/Electric Bills: No Difficulty Paying for Meds: No Currently Unemployed: No Difficulty w/ Childcare or Family Care: No Living arrangements: with family Occupation/Education: retired Gender identity (if verbalized by the patient): Female Sexual Orientation (if Verbalized by the Patient): Straight or Heterosexual Spiritual care concerns: No Exam Narrative: APPEARANCE: Very anxious appearing but no acute distress. Head: Normocephalic and atraumatic. EYES: PERRLA/EOMI, conjunctivae clear. There is fatiguable horizontal nystagmus with EOMs. NOSE: No nasal drainage EARS: External ear normal in appearance THROAT: Mucous membranes are dry. NECK: Supple. No adenopathy, no masses. RESPIRATORY: Airway patent, respirations nonlabored. Clear to auscultation bilaterally, no rales, rhonchi, wheezing. CARDIOVASC
[2023-03-20 11:02] LABS: Alanine Aminotransferase 32 U/L (6-35); Albumin Level 3.5 g/dL (3.5-5.1); Alkaline Phosphatase 333 U/L (38-126); Anion Gap 8 mmol/L (8-16); Aspartate Amino Transferase 73 U/L (14-36); Bilirubin,Total 0.9 mg/dL (0.2-1.3); Blood Urea Nitrogen 29 mg/dL (7-17); Calcium 8.2 mg/dL (8.4-10.2); Carbon Dioxide 23 mmol/L (22-30); Chloride 97 mmol/L (98-107); Estimated Glomerular Filt Rate > 60; Glucose 160 mg/dL (65-110); Lipase 50 U/L (23-300); Potassium 4.4 mmol/L (3.4-5.0); Sodium 128 mmol/L (137-145)
[2023-03-20 11:12] LABS: Anisocytosis 1+ (NORMAL); Hypochromasia 1+ (NORMAL); Microcytosis 2+ (NORMAL); Ovalocytes 1+ (NORMAL); Platelet Estimate Adequate (Adequate); Schistocytes None Seen (NORMAL)
[2023-03-20 11:14] LABS: Troponin I < 0.012 ng/mL (0.000-0.034)
[2023-03-20] MEDS: SODIUM CHLORIDE 0.9% IV 1,000 ML 999 ML IV CONT (11:17)
[2023-03-20 12:16] LABS: Add Urine Microscopic? YES; Appearance Urine Cloudy (Clear); Bacteria Urine 4+ /hpf; Bilirubin Urine Negative (Negative); Blood Urine Negative (Negative); Color Urine Yellow (Yellow); Glucose Urine UA Negative (Negative); Ketones Urine 2+ mg/dL (Negative); Leukocyte Esterase Ur Negative LEU/UL (Negative); Nitrate Urine Negative (Negative); Non Pathogenic Casts 0-2; Protein Urine 1+ mg/dL (Negative); RBC Urine 0-2 /hpf (0-2); Specific Grav Ur 1.024 (1.001-1.035); Squamous Epithelial Cell Urine Few /hpf (Few); WBC Urine 0-5 /hpf
[2023-03-20 12:18] LABS: Sodium Urine Random 19 meq/L
[2023-03-20] MEDS: LORazepam (*CRX) 0.5 MG TABLET PO (12:43)
[2023-03-20 12:56] LABS: NT Pro B Type Natriuretic Pept 482 pg/mL (19.9-100)
[2023-03-20 14:06] LABS: Partial Thromboplastin Time 37.4 SECONDS (22.3-36.8); Prothrombin Time 13.8 Seconds (11.1-14.7)
[2023-03-20] MEDS: SODIUM CHLORIDE 0.9% IV 1,000 ML 100 ML IV CONT (20:34)
--- NOTE | 2023-03-20 20:55 | PM.IMHP ---
H&P: HPI History of Present Illness Date/Time: 03/20/23 15:30 Chief Complaint: ?I feel like I am dying.? Narrative: This is an 82-year-old female with hepatocellular carcinoma (treated previously with what sounds like cryoablation and chemo radiation), coronary artery disease, diabetes, cirrhosis, and hypertension who presented to the emergency department via EMS from home ?because I feel like I am dying.? The patient provides the following history. Over the last 5 to 6 months she has developed pain in the right flank which started shortly after sustaining a fall. She was not evaluated immediately after the fall but was a couple of months thereafter and she reportedly having normal admitting at that time. She is tablets care with Dr. Duncan about a month ago and at that time she was still complaining of the same type of pain, mainly in the right lower back and the right flank. She was seen in the emergency department the day after she saw him in clinic and a CT of the abdomen and pelvis at that time showed what appeared to be a large right hepatocellular carcinoma with invasion to the diaphragm and right upper quadrant peritoneum, cirrhosis, splenomegaly, varices, and large right pleural effusion. She was seen at [facility] by her liver specialist and Interventional Radiology not long thereafter and is my understanding that she is going to be discussed at tumor board in the coming weeks to help decide treatment. Unfortunately she continues to have severe right flank pain despite taking oxycodone. The last several days she has been increasingly anxious and reports having a sensation of impending doom. Her appetite has been poor and she has not eaten much due to severe nausea. She thinks she might feel better if she was able to vomit. She is feeling increasingly weak and lightheaded. Vital signs have been stable since arrival to the ED. Her labs are significant for is stable microcytic anemia, sodium 128, chloride 97, BUN 29, creatinine 0.60, total bilirubin 0.9, AST 73, ALT 32, alkaline phosphatase 333. She was given IV fluids and antiemetics in the ED with mild improvement in her symptoms however she did not feel well enough to be discharged home and she is being admitted for further hydration and pain control. Review of Systems Review of Systems: Twelve systems were reviewed. She denies fever, chills, sweats. No syncope or near syncope. No cold or flu symptoms. She denies chest and pleuritic pain. No cough. No significant shortness of breath. She has some mild lower extremity edema but nothing significant. She has intermittent diarrhea and constipation and this is unchanged. No dysuria. She has not noticed any dark stools or bright red blood in her stools. Except as documented, all other systems were reviewed and are negative. [facility] Past Medical History Medical History (Updated 03/20/23 @ 21:10 by Angelia Ward PA-C) Arthritis Cirrhosis of liver Coronary artery disease Depression with anxiety Hepatocellular carcinoma Previously treated with what sounds like cryoablation and chemo radiation. Recurrence noted on CT scan on 02/20/2023. Hypertension Kidney stones Liver cancer Peptic ulcer Type 2 diabetes mellitus Surgical History Surgical History (Updated 03/20/23 @ 21:07 by Angelia Ward PA-C) Status post cryoablation Family History Family History (Updated 03/20/23 @ 21:07 by Angelia Ward PA-C) Other Diabetes mellitus Hypertension Social History Social History (Updated 03/20/23 @ 21:07 by Angelia Ward PA-C) Social History: Surrogate medical decision maker: Dipti Mckeon, daughter. Code status: Full code. Smoking status: Never smoker Second hand tobacco smoke exposure: No Alcohol intake: never Substance use: never Substance use type: does not use Lack of Transportation: No Lack of Food: Never True Current Housing: I Have Housing Concerned About Future Housing:
[2023-03-20] MEDS: oxyCODONE HCL (*CRX) 5 MG TAB IR 10 MG PO (21:06)
[2023-03-20] MEDS: traZODone HCL 50 MG TABLET 150 MG PO (21:06)
[2023-03-20 21:22] LABS: Hemoglobin A1C 8.4 % (<5.7)
[2023-03-20 21:31] LABS: Glucose Point of Care 134 mg/dl (65-105)
[2023-03-20 22:05] LABS: Anion Gap 6 mmol/L (8-16); Blood Urea Nitrogen 25 mg/dL (7-17); Calcium 7.8 mg/dL (8.4-10.2); Carbon Dioxide 23 mmol/L (22-30); Chloride 99 mmol/L (98-107); Estimated Glomerular Filt Rate > 60; Glucose 127 mg/dL (65-110); Potassium 4.2 mmol/L (3.4-5.0); Sodium 128 mmol/L (137-145)
[2023-03-20 22:13] LABS: Iron < 10 ug/dL (37-170)
[2023-03-21 00:58] LABS: Percent Iron Saturation < 3 % (20-50)
[2023-03-21 05:57] VITALS: BP 124/55; PULSE 73; RESP 14; TEMP 36.1; O2SAT 95
[2023-03-21] MEDS: HYDROcodone/acetaminophen (*CRX) 5-325 MG TABLET 1 TAB PO ×2 (05:59→21:02)
[2023-03-21 06:33] LABS: Hematocrit 27.1 % (37.0-47.0); Hemoglobin 7.5 g/dL (12.0-15.0); Immature Platelet Fraction Pct 4.8 % (0.9-11.2); Mean Corpuscular HGB Conc 27.7 g/dl (32-36); Mean Corpuscular Hemoglobin 18.6 pg (26-34); Mean Corpuscular Volume 67.1 fl (80-100); Mean Platelet Volume 10.2 fl (7.4-10.4); Platelet Count Result 209 k/mm3 (150-375); Red Blood Count 4.04 M/mm3 (4.2-5.4); Red Cell Distribution Width 18.4 % (11.5-14.5); White Blood Count 6.1 K/mm3 (4.5-10.0)
[2023-03-21 06:58] LABS: Alanine Aminotransferase 26 U/L (6-35); Albumin Level 2.9 g/dL (3.5-5.1); Alkaline Phosphatase 286 U/L (38-126); Anion Gap 7 mmol/L (8-16); Aspartate Amino Transferase 56 U/L (14-36); Bilirubin,Total 0.6 mg/dL (0.2-1.3); Blood Urea Nitrogen 20 mg/dL (7-17); Calcium 7.6 mg/dL (8.4-10.2); Carbon Dioxide 22 mmol/L (22-30); Chloride 102 mmol/L (98-107); Estimated Glomerular Filt Rate > 60; Glucose 84 mg/dL (65-110); Potassium 3.9 mmol/L (3.4-5.0); Sodium 131 mmol/L (137-145)
[2023-03-21 07:41] LABS: Glucose Point of Care 99 mg/dl (65-105)
[2023-03-21 09:10] VITALS: PULSE 97
[2023-03-21] MEDS: POLYSACCHARIDE IRON COMPLEX 150 MG CAPSULE PO (09:10)
[2023-03-21] MEDS: ENOXAPARIN 40 MG/0.4 ML SYRINGE SUB-Q (09:10)
[2023-03-21] MEDS: PANTOPRAZOLE 40 MG TABLET PO (09:10)
[2023-03-21] MEDS: CYANOCOBALAMIN 1,000 MCG TABLET 5000 MCG PO (09:10)
[2023-03-21] MEDS: METOPROLOL SUCCINATE EXT REL 50 MG TABCR PO (09:10)
[2023-03-21] MEDS: metFORMIN HCL 500 MG TABLET 1000 MG PO (09:11)
[2023-03-21] MEDS: ACETAMINOPHEN 325 MG TABLET 650 MG PO (09:14)
[2023-03-21 11:45] LABS: Glucose Point of Care 135 mg/dl (65-105)
[2023-03-21 14:00] VITALS: BP 108/69; PULSE 72; RESP 16; TEMP 36.2; O2SAT 96
--- NOTE | 2023-03-21 15:46 | PM.IMPN ---
Progress Note: A&P Assessment and Plan (1) Dehydration: Code(s): E86.0 - Dehydration Status: Acute Assessment and Plan: She is dehydrated from poor oral intake the last several days. Continue judicious IV fluid rehydration. Antiemetics as needed. (2) Hyponatremia: Code(s): E87.1 - Hypo-osmolality and hyponatremia Status: Acute Assessment and Plan: Likely due to a combination of dehydration and liver disease. Continue IV fluids, (3) Hepatocellular carcinoma: Code(s): C22.0 - Liver cell carcinoma Status: Acute Assessment and Plan: Recent CT scan showed evidence of a large right lobe hepatocellular carcinoma. She has follow-up at [facility] in the coming weeks. Her abdominal pain is likely related to this and analgesics are available as needed. (4) Microcytic anemia: Code(s): D50.9 - Iron deficiency anemia, unspecified Status: Acute Assessment and Plan: Check iron studies and stool for occult blood. Patient does report history of peptic ulcers. will give iron infusion (5) Type 2 diabetes mellitus: Code(s): E11.9 - Type 2 diabetes mellitus without complications Status: Acute Assessment and Plan: Continue metformin. Initiate sliding scale insulin, Accu-Cheks, and hypoglycemic protocol. A1c 8.4 (6) Hypertension: Code(s): I10 - Essential (primary) hypertension Status: Acute Assessment and Plan: Blood pressures were reviewed and they have been stable. Continue antihypertensives and monitor. Subjective Date/time seen: 03/21/23 15:46 Interval history: No overnight events. Denies any new complaints. Chart reviewed. No shortness of breaths chest pain. feeling a bit better today. Review of Systems Review of Systems: All systems reviewed & are unremarkable except as noted in HPI and below Exam Narrative: General: Mildly ill-appearing female in the semi-Pérez position in bed in no acute distress. HEENT: PERRL, EOMI. Sclera anicteric. Tacky mucous membranes. Neck: Supple. Respiratory: Respirations are nonlabored and she is speaking full sentences. Lung sounds are a bit diminished at the right base but otherwise clear to auscultation. Cardiovascular: Regular rate and rhythm with S1-S2. Gastrointestinal: Abdomen is nondistended with positive bowel sounds. Liver feels a bit enlarged. She is tender to palpation throughout the right upper quadrant. No guarding or rebound tenderness. No CVA tenderness. Skin: Warm and dry. No rash or lesions on limited exam. Extremities: No cyanosis or clubbing. Mild rut ankle edema bilaterally. Radial and pedal pulses intact. Neurological: Alert and oriented. Cranial nerves 2-12 are grossly intact. Generalized weakness without focal findings. Psychiatric: Pleasant and cooperative. Appropriate mood. Objective Data Vital Signs Vital Signs: Vital Signs - 24 hr 03/20/23 16:00 03/20/23 16:00 03/20/23 21:43 Temperature 96.8 F L 98.4 F Pulse Rate 63 80 Respiratory Rate 24 H 14 Blood Pressure 139/41 L 144/73 H Pulse Oximetry 99 98 Oxygen Delivery Room Air 03/20/23 20:00 03/21/23 05:57 03/21/23 09:10 Temperature 96.9 F L Pulse Rate 73 97 Respiratory Rate 14 Blood Pressure 124/55 L Pulse Oximetry 95 Oxygen Delivery Room Air 03/21/23 09:00 03/21/23 14:00 Temperature 97.2 F L Pulse Rate 72 Respiratory Rate 16 Blood Pressure 108/69 Pulse Oximetry 96 Oxygen Delivery Room Air Intake/Output Intake/Output: Intake & Output 03/18/23 03/19/23 03/20/23 03/21/23 23:59 23:59 23:59 23:59 Intake Total 1240 2190 Output Total 650 Balance 1240 1540 Meds/Results Medications: Active Medications Generic Name Dose Route Start Last Admin Trade Name Freq PRN Reason Stop Dose Admin Acetaminophen 650 mg 03/20/23 20:51 03/21/23 09:14 Acetaminophen 325 Mg Tablet PO 650 mg Q6H PRN Administration Mi
[2023-03-21 16:49] LABS: Glucose Point of Care 125 mg/dl (65-105)
[2023-03-21] MEDS: IRON SUCROSE COMPLEX 200 MG in SODIUM CHLORIDE 0.9% IV 50 ML 120 MG IVPB (17:09)
[2023-03-21] MEDS: oxyCODONE HCL (*CRX) 5 MG TAB IR 10 MG PO (17:09)
[2023-03-21 20:43] LABS: Glucose Point of Care 136 mg/dl (65-105)
[2023-03-21] MEDS: traZODone HCL 50 MG TABLET 150 MG PO (20:55)
[2023-03-21 21:29] VITALS: BP 113/54; PULSE 68; RESP 14; TEMP 36.4; O2SAT 95
[2023-03-22 05:38] VITALS: BP 109/53; PULSE 70; RESP 14; TEMP 36.2; O2SAT 91
[2023-03-22 06:33] LABS: Basophils Percent Auto 0.4 % (0.2-1.2); Eosinophils Absolute Auto 0.1 K/mm3 (0-0.3); Eosinophils Percent Auto 1.9 % (0-4.4); Hematocrit 25.6 % (37.0-47.0); Hemoglobin 7.2 g/dL (12.0-15.0); Immature Granulocyte Absolute 0.02 K/mm3 (0.00-0.031); Immature Granulocyte Percent A 0.4 % (0-0.5); Immature Platelet Fraction Pct 3.8 % (0.9-11.2); Lymphocytes Absolute Auto 0.65 K/mm3 (0.9-3.2); Lymphocytes Percent Auto 13.9 % (18.3-44.2); Mean Corpuscular HGB Conc 28.1 g/dl (32-36); Mean Corpuscular Hemoglobin 19.2 pg (26-34); Mean Corpuscular Volume 68.3 fl (80-100); Mean Platelet Volume 10.5 fl (7.4-10.4); Monocytes Absolute Auto 0.5 K/mm3 (0.1-0.6); Monocytes Percent Auto 9.9 % (2.6-8.5); Neutrophils Absolute Auto 3.4 K/mm3 (1.3-6.7); Neutrophils Percent Auto 73.5 % (45.5-73.1); Platelet Count Result 211 k/mm3 (150-375); Red Blood Count 3.75 M/mm3 (4.2-5.4); Red Cell Distribution Width 18.6 % (11.5-14.5); White Blood Count 4.7 K/mm3 (4.5-10.0)
[2023-03-22 06:36] LABS: Alanine Aminotransferase 23 U/L (6-35); Albumin Level 2.8 g/dL (3.5-5.1); Alkaline Phosphatase 273 U/L (38-126); Anion Gap 5 mmol/L (8-16); Aspartate Amino Transferase 45 U/L (14-36); Bilirubin,Total 0.6 mg/dL (0.2-1.3); Blood Urea Nitrogen 20 mg/dL (7-17); Calcium 7.6 mg/dL (8.4-10.2); Carbon Dioxide 24 mmol/L (22-30); Chloride 102 mmol/L (98-107); Estimated Glomerular Filt Rate > 60; Glucose 88 mg/dL (65-110); Potassium 3.9 mmol/L (3.4-5.0); Sodium 131 mmol/L (137-145)
[2023-03-22 07:11] LABS: Anisocytosis 1+ (NORMAL); Crenated RBC 1+ (NORMAL); Microcytosis 2+ (NORMAL); Platelet Estimate Adequate (Adequate); Schistocytes None Seen (NORMAL)
[2023-03-22] MEDS: HYDROcodone/acetaminophen (*CRX) 5-325 MG TABLET 1 TAB PO (08:10)
[2023-03-22 08:12] VITALS: PULSE 75
[2023-03-22] MEDS: metFORMIN HCL 500 MG TABLET 1000 MG PO (08:12)
[2023-03-22] MEDS: POLYSACCHARIDE IRON COMPLEX 150 MG CAPSULE PO (08:12)
[2023-03-22] MEDS: METOPROLOL SUCCINATE EXT REL 50 MG TABCR PO (08:12)
[2023-03-22] MEDS: PANTOPRAZOLE 40 MG TABLET PO (08:13)
[2023-03-22] MEDS: ENOXAPARIN 40 MG/0.4 ML SYRINGE SUB-Q (08:13)
[2023-03-22 08:16] LABS: Glucose Point of Care 94 mg/dl (65-105)
[2023-03-22] MEDS: CYANOCOBALAMIN 1,000 MCG TABLET 5000 MCG PO (08:57)
[2023-03-22 12:05] LABS: Glucose Point of Care 83 mg/dl (65-105)
[2023-03-22 14:00] VITALS: BP 134/64; PULSE 66; RESP 18; TEMP 36.2; O2SAT 95
--- NOTE | 2023-03-22 15:09 | PM.DS ---
DS: Admitting Diagnosis Discharge Date 03/22/2023 Admitting Diagnosis anxiety DS: Discharge Diagnosis Discharge Diagnosis (1) Dehydration: Code(s): E86.0 - Dehydration Status: Acute (2) Hyponatremia: Code(s): E87.1 - Hypo-osmolality and hyponatremia Status: Acute (3) Hepatocellular carcinoma: Code(s): C22.0 - Liver cell carcinoma Status: Acute (4) Microcytic anemia: Code(s): D50.9 - Iron deficiency anemia, unspecified Status: Acute (5) Type 2 diabetes mellitus: Code(s): E11.9 - Type 2 diabetes mellitus without complications Status: Acute (6) Hypertension: Code(s): I10 - Essential (primary) hypertension Status: Acute DS: Summary Hospital Course Hospital Course: # Dehydration: She is dehydrated from poor oral intake the last several days. Continue judicious IV fluid rehydration. Antiemetics as needed. # hyponatremia: Likely due to a combination of dehydration and liver disease. Continue IV fluids, # hepatocellular carcinoma: Recent CT scan showed evidence of a large right lobe hepatocellular carcinoma. She has follow-up at [facility] in the coming weeks. Her abdominal pain is likely related to this and analgesics are available as needed. # microcytic anemia: Check iron studies and stool for occult blood. Patient does report history of peptic ulcers. Given iron infusion hospital stay. # type 2 diabetes mellitus: Continue metformin. Initiate sliding scale insulin, Accu-Cheks, and hypoglycemic protocol.? A1c 8.4 # Hypertension: Blood pressures were reviewed and they have been stable.? Continue antihypertensives and monitor. Time Spent with Patient Time attestation: Total time spent providing and/or coordinating discharge services: 35 minutes Exam Narrative: General: Mildly ill-appearing female in the semi-Pérez position in bed in no acute distress. HEENT: PERRL, EOMI. Sclera anicteric. Tacky mucous membranes. Neck: Supple. Respiratory: Respirations are nonlabored and she is speaking full sentences. Lung sounds are a bit diminished at the right base but otherwise clear to auscultation. Cardiovascular: Regular rate and rhythm with S1-S2. Gastrointestinal: Abdomen is nondistended with positive bowel sounds. Liver feels a bit enlarged. She is tender to palpation throughout the right upper quadrant. No guarding or rebound tenderness. No CVA tenderness. Skin: Warm and dry. No rash or lesions on limited exam. Extremities: No cyanosis or clubbing. Mild rut ankle edema bilaterally. Radial and pedal pulses intact. Neurological: Alert and oriented. Cranial nerves 2-12 are grossly intact. Generalized weakness without focal findings. Psychiatric: Pleasant and cooperative. Appropriate mood. DS: Data Data Completed and Pending Labs on day of discharge: Labs from last 24 hours 03/22/23 03/22/23 03/22/23 11:40 07:50 05:41 WBC 4.7 RBC 3.75 L Hgb 7.2 L Hct 25.6 L MCV 68.3 L MCH 19.2 L MCHC 28.1 L RDW 18.6 H Plt Count 211 MPV 10.5 H Immature Gran % (Auto) 0.4 Neut % (Auto) 73.5 H Lymph % (Auto) 13.9 L Sierra % (Auto) 9.9 H Eos % (Auto) 1.9 Baso % (Auto) 0.4 Lymph # (Auto) 0.65 L Sierra # (Auto) 0.5 Eos # (Auto) 0.1 Baso # (Auto) 0.0 Abs Immat Gran (auto) 0.02 Absolute Neuts (auto) 3.4 Absolute Nucleated RBC 0.0 Nucleated RBC % 0.0 Platelet Estimate Adequate % Immature Plt Fraction 3.8 Anisocytosis 1+ Microcytosis 2+ Crenated Cell 1+ Schistocytes None seen Sodium 131 L Potassium 3.9 Chloride 102 Carbon Dioxide 24 Anion Gap 5 L BUN 20 H Creatinine 0.60 L Estim Creat Clear Calc Not Reportable Estimated GFR > 60 Glucose 88 POC Capillary Glucose 83 94 Calcium 7.6 L Magnesium 2.0 Total Bilirubin 0.6 AST 45 H ALT 23 Alkaline Phosphatase 273 H Total Protein 6.0 L Albumin 2.8 L
[2023-03-24 17:07] LABS: Osmolality, Urine 685 mOsm/kg (50-1200)
== END 2023-03-22 16:15 | disposition home or self-care (01) ==
LOC: ANHED 13:24 → ANH3MEDSUR 15:58
PROVIDERS: Physician Assistant; Admitting Provider Student in an Organized Health Care Education/Training Program; Emergency Provider Physician Assistant; PCP Family Medicine; Visit Provider Internal Medicine
DX: E86.0 Dehydration (principal); E87.1 Hypo-osmolality and hyponatremia; C22.0 Liver cell carcinoma; D50.9 Iron deficiency anemia, unspecified; E11.9 Type 2 diabetes mellitus without complications; I10 Essential (primary) hypertension; I25.10 Atherosclerotic heart disease of native coronary artery without angina pectoris; F41.8 Other specified anxiety disorders; G89.29 Other chronic pain; M54.9 Dorsalgia, unspecified; R60.0 Localized edema; R79.89 Other specified abnormal findings of blood chemistry; R91.8 Other nonspecific abnormal finding of lung field; I45.10 Unspecified right bundle-branch block; R94.31 Abnormal electrocardiogram [ECG] [EKG]; K74.60 Unspecified cirrhosis of liver; R10.9 Unspecified abdominal pain; R11.0 Nausea; R00.0 Tachycardia, unspecified; Z79.84 Long term (current) use of oral hypoglycemic drugs; Z79.891 Long term (current) use of opiate analgesic; Z79.899 Other long term (current) drug therapy; Z82.49 Family history of ischemic heart disease and other diseases of the circulatory system; Z83.3 Family history of diabetes mellitus
CPT/HCPCS: 36415; 71046; 80048; 80053; 81001; 82607; 82728; 82746; 82948; 83036; 83540; 83550; 83690; 83735; 83880; 83930; 83935; 84300; 84443; 84484; 85025; 85027; 85055; 85610; 85730; 93005; 93970; 96361; 96365; 96372; 96374; 96375; 99285; A9270; G0378; J1650; J1756; J2405; J7030

== ENCOUNTER 2023-03-31 10:43 | Observation (INO) | payer MEDICARE, SELFPAY ==
[2023-03-31] VITALS (14 sets, daily range): BP systolic 109–153; BP diastolic 51–82; PULSE 75–87; RESP 14–30; TEMP 36.2–37; O2SAT 95–99; BMI 26.6
--- NOTE | ~2023-03-31 | CT_ITS ---
EXAMINATION: CT brain wo con DATE: 03/31/2023 12:30 INDICATION: Altered level of consciousness. TECHNIQUE: Computed tomography (CT) of the head was performed without intravenous contrast. The mA wa s adjusted according to patient size. Iterative reconstruction technique was employed. The dose-lengt h product was 681.00 mGy-cm. COMPARISON: None FINDINGS: There are scattered areas of low attenuation in the cerebral white matter. There is no intr acranial hemorrhage, acute infarction, or abnormal intracranial mass lesion. The ventricles are kathrin l in size. There are likely changes of ocular lens replacement surgeries. There is mild mucosal thick ening in the paranasal sinuses. The mastoid air cells are normal. There is cerumen in the external au ditory canals bilaterally. IMPRESSION: 1. Moderate nonspecific cerebral white matter disease, which likely represents chronic small vessel i schemic disease. Reviewed, dictated and finalized at location A. IMPRESSION: 1. Moderate nonspecific cerebral white matter disease, which likely represents chronic small vessel ischemic disease.
--- NOTE | ~2023-03-31 | XR_ITS ---
EXAMINATION: XR chest 1V DATE: 03/31/2023 12:32 INDICATION: Cough. Weakness. TECHNIQUE: A single frontal view of the chest was obtained. COMPARISON: Chest 2 views 03/20/23, chest CT 02/20/2023 FINDINGS: There is a moderate-sized right pleural effusion. There are airspace opacities in all right lung zones with a basilar predominance. No pneumothorax. Cardiomegaly is noted. There are surgical c lips in the abdomen. IMPRESSION: 1. Worsened moderate-sized right pleural effusion. 2. Airspace opacities in right lung, consistent with atelectasis versus pneumonia. 3. Cardiomegaly. Reviewed, dictated and finalized at location A. IMPRESSION: 1. Worsened moderate-sized right pleural effusion. 2. Airspace opacities in right lung, consistent with atelectasis versus pneumon ia. 3. Cardiomegaly.
--- NOTE | ~2023-03-31 | US_ITS ---
EXAMINATION: US thoracentesis DATE: 03/31/2023 17:45 INDICATION: Moderate-sized right pleural effusion. TECHNIQUE: The procedure and its risks and benefits were discussed with the patient. Potential risks discussed included bleeding, infection, and pneumothorax. The patient understood the risks and agreed to proceed. The skin was prepped and draped in sterile fashion. 1% lidocaine was used for local anes thesia. Under ultrasound guidance, a 5 Fr catheter with trochar was advanced into the right pleural e ffusion. Fluid was aspirated. The catheter was removed, and a dressing was applied. There were no imm ediate complications. FINDINGS: Ultrasound images demonstrate a moderate-sized right pleural effusion and the catheter within the flu id. IMPRESSION: 1. Successful ultrasound-guided thoracentesis yielding 500 mL of clear riki-colored fluid. Reviewed, dictated and finalized at location A. IMPRESSION: 1. Successful ultrasound-guided thoracentesis yielding 500 mL of clear riki-c olored fluid.
--- NOTE | 2023-03-31 11:19 | ECG_ITS ---
Measurements Intervals [place] Rate: 78 P: 17 MD: 172 QRS: -22 QRSD: 137 T: -11 QT: 438 QTc: 501 Interpretive Statements SINUS RHYTHM POSSIBLE LEFT ATRIAL ENLARGEMENT RIGHT BUNDLE BRANCH BLOCK CONSIDER INFERIOR INFARCT, AGE INDETERMINATE ABNORMAL ECG COMPARED TO ECG 03/20/2023 10:44:37 NO SIGNIFICANT CHANGES Electronically Signed On 03-31-2023 12:21:02 CDT by Ruddy Early D.O.
--- NOTE | 2023-03-31 11:44 | ED.AMS ---
HPI - Altered Mental Status General Chief Complaint: Altered Mental Status Stated Complaint: AMS Time Seen by Provider: 03/31/23 11:33 History of Present Illness HPI narrative: Per daughter patient was confused and disoriented this morning and is normally alert. Pt didn't know where she was and then had episode where she started shaking and her eyes rolled back in her head and she didn't respond. Pt has no seizure history and denies STROUD or neuro symptoms. Per daughter pt started taking new pain medicine for back pain this morning. Related Data Home Medications Medication Instructions Recorded Confirmed mecobalamin (vitamin B12) 5,000 5,000 mcg PO DAILY 02/19/23 03/31/23 mcg chewable tablet pantoprazole 40 mg tablet,delayed 40 mg PO QAM 02/19/23 03/31/23 release polysaccharide iron complex 150 mg 300 mg PO DAILY 02/19/23 03/31/23 iron capsule trazodone 150 mg tablet 150 mg PO QHS 02/19/23 03/26/23 Allergies Allergy/AdvReac Type Severity Reaction Status Date / Time hydrocodone AdvReac Nausea and Verified 03/31/23 15:14 Vomiting Review of Systems Review of Systems: All systems reviewed & are unremarkable except as noted in HPI and below PMFSH Past Medical History Medical History Anemia Arthritis Cirrhosis of liver Coronary artery disease Depression with anxiety Hepatocellular carcinoma Previously treated with what sounds like cryoablation and chemo radiation. Recurrence noted on CT scan on 02/20/2023. Hypertension Kidney stones Liver cancer Peptic ulcer Type 2 diabetes mellitus Surgical History Surgical History Status post cryoablation Family History Family History Other Diabetes mellitus Hypertension Social History Social History Social History: Surrogate medical decision maker: Dipti Mckeon, daughter. Code status: Full code. Years smoked: 20 Smoking status: Former smoker Tobacco type: cigarettes Second hand tobacco smoke exposure: Yes Additional smoking assessment comments: off and on Alcohol intake: never Substance use: never Substance use type: does not use Lack of Transportation: No Lack of Food: Never True Current Housing: I Have Housing Concerned About Future Housing: No Difficulty Paying Gas/Electric Bills: No Difficulty Paying for Meds: No Currently Unemployed: No Education: Associate Degree Difficulty w/ Childcare or Family Care: No Living arrangements: with family Additional living arrangements comments: Lives in [place]. 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 Gender identity (if verbalized by the patient): Female Sexual Orientation (if Verbalized by the Patient): Straight or Heterosexual Spiritual care concerns: No Exam Const: General: healthy appearing Nutritional Appearance: thin Orientation/consciousness: patient oriented x3 Limitations: no limitations HENMT: Head: normal to inspection Mouth: Yes Normal oral and palatal mucosa present Throat: posterior oropharynx normal Eyes: Conjunctivae: conjunctivae normal Pupils: Equal, round and reactive pupils present EOM: EOMs intact bilaterally Chest: Chest palpation & inspection: normal inspection of the chest Resp: Effort & Inspection: normal respiratory effort Auscultation: clear to auscultation bilaterally Cardio: Rate: regular rate Rhythm: regular rhythm GI: GI Palp: Yes Soft to palpation Auscultation: normal bowel sounds Skin: General skin exam: normal color Wounds: no wounds Neuro: General: patient oriented x3, moves all extremities, no meningeal signs, no focal motor deficits and CN's II-XI intact bilaterally Cranial nerves: Yes Nystagmus not present Speech: normal speec
[2023-03-31 12:29] LABS: Basophils Percent Auto 0.5 % (0.2-1.2); Eosinophils Absolute Auto 0.1 K/mm3 (0-0.3); Eosinophils Percent Auto 1.2 % (0-4.4); Hematocrit 33.4 % (37.0-47.0); Hemoglobin 9.1 g/dL (12.0-15.0); Immature Granulocyte Absolute 0.01 K/mm3 (0.00-0.031); Immature Granulocyte Percent A 0.2 % (0-0.5); Immature Platelet Fraction Pct 6.4 % (0.9-11.2); Lymphocytes Absolute Auto 0.44 K/mm3 (0.9-3.2); Lymphocytes Percent Auto 10.7 % (18.3-44.2); Mean Corpuscular HGB Conc 27.2 g/dl (32-36); Mean Corpuscular Hemoglobin 19.2 pg (26-34); Mean Corpuscular Volume 70.6 fl (80-100); Monocytes Absolute Auto 0.4 K/mm3 (0.1-0.6); Neutrophils Absolute Auto 3.2 K/mm3 (1.3-6.7); Neutrophils Percent Auto 77.4 % (45.5-73.1); Platelet Count Result 130 k/mm3 (150-375); Red Blood Count 4.73 M/mm3 (4.2-5.4); Red Cell Distribution Width 22.5 % (11.5-14.5); White Blood Count 4.1 K/mm3 (4.5-10.0)
[2023-03-31 12:31] LABS: Prothrombin Time 13.4 Seconds (11.1-14.7)
[2023-03-31 12:32] LABS: Partial Thromboplastin Time 31.4 SECONDS (22.3-36.8)
[2023-03-31 12:35] LABS: Lactic Acid Reflex 1.7 mmol/L (0.7-2.0)
[2023-03-31 12:36] LABS: Alanine Aminotransferase 28 U/L (6-35); Albumin Level 3.8 g/dL (3.5-5.1); Alkaline Phosphatase 320 U/L (38-126); Anion Gap 8 mmol/L (8-16); Appearance Urine Cloudy (Clear); Aspartate Amino Transferase 71 U/L (14-36); Bacteria Urine 4+ /hpf; Bilirubin Urine Negative (Negative); Bilirubin,Total 1.3 mg/dL (0.2-1.3); Blood Urea Nitrogen 23 mg/dL (7-17); Blood Urine Negative (Negative); Calcium 8.5 mg/dL (8.4-10.2); Carbon Dioxide 29 mmol/L (22-30); Chloride 99 mmol/L (98-107); Color Urine Dark Yellow (Yellow); Estimated CRCL calculation 45 ml/min; Estimated Glomerular Filt Rate > 60; Glucose 184 mg/dL (65-110); Glucose Urine UA Negative (Negative); Ketones Urine Negative (Negative); Leukocyte Esterase Ur 1+ LEU/UL (Negative); Nitrate Urine Negative (Negative); Non Pathogenic Casts 0-2; Potassium 2.9 mmol/L (3.4-5.0); Protein Urine Trace mg/dL (Negative); RBC Urine 0-2 /hpf (0-2); Sodium 136 mmol/L (137-145); Specific Grav Ur 1.017 (1.001-1.035); Squamous Epithelial Cell Urine Occasional /hpf (Few); pH Urine 6.5 (5.0-9.0)
[2023-03-31 12:38] LABS: Add Urine Microscopic? YES
[2023-03-31 12:46] LABS: Anisocytosis 3+ (NORMAL); Hypochromasia 3+ (NORMAL); Microcytosis 1+ (NORMAL)
[2023-03-31 12:47] LABS: Ovalocytes 1+ (NORMAL); Schistocytes None Seen (NORMAL)
[2023-03-31] MEDS: KCL 20 MEQ/SW 100 ML 100 ML 50 MEQ IVPB (13:50)
--- NOTE | 2023-03-31 14:21 | PM.IMHP ---
H&P: HPI History of Present Illness Date/Time: 03/31/23 14:21 Chief Complaint: Seizures Narrative: he truly female who was brought to the ER by family after the weakness and episode when the patient was awaiting her eyes and set up a whole body started shaking. Family describes this as being a seizure. They also report loss of consciousness after this episode. Patient does not have a history of seizure. she does apparently have a history of a liver cancer with Mets to diaphragm. CT head was negative. Chest x-ray showed moderate right-sided pleural effusion. Patient was also found to have UTI. she was given 1 dose of IV Rocephin in the ED Review of Systems Review of Systems: negative other than HPI PMFSH Past Medical History Medical History Anemia Arthritis Cirrhosis of liver Coronary artery disease Depression with anxiety Hepatocellular carcinoma Previously treated with what sounds like cryoablation and chemo radiation. Recurrence noted on CT scan on 02/20/2023. Hypertension Kidney stones Liver cancer Peptic ulcer Type 2 diabetes mellitus Surgical History Surgical History Status post cryoablation Family History Family History Other Diabetes mellitus Hypertension Social History Social History Social History: Surrogate medical decision maker: Dipti Mckeon, daughter. Code status: Full code. Smoking status: Never smoker Second hand tobacco smoke exposure: No Alcohol intake: never Substance use: never Substance use type: does not use Lack of Transportation: No Lack of Food: Never True Current Housing: I Have Housing Concerned About Future Housing: No Difficulty Paying Gas/Electric Bills: No Difficulty Paying for Meds: No Currently Unemployed: No Education: High School Diploma/GED Difficulty w/ Childcare or Family Care: No Living arrangements: with family Additional living arrangements comments: Lives in [place]. 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 Gender identity (if verbalized by the patient): Female Sexual Orientation (if Verbalized by the Patient): Straight or Heterosexual Spiritual care concerns: No Meds Home Medications and Allergies Home Medications Medication Instructions Recorded Confirmed Type mecobalamin (vitamin B12) 5,000 5,000 mcg PO DAILY 02/19/23 03/26/23 History mcg chewable tablet metoprolol succinate 50 mg 50 mg PO DAILY #90 tabs 02/19/23 03/26/23 Rx tablet,extended release 24 hr pantoprazole 40 mg tablet,delayed 40 mg PO QAM 02/19/23 03/26/23 History release polysaccharide iron complex 150 mg 150 mg PO DAILY 02/19/23 03/26/23 History iron capsule trazodone 150 mg tablet 150 mg PO QHS 02/19/23 03/26/23 History oxycodone 10 mg tablet 10 mg PO Q8H PRN pain #30 tabs 03/18/23 03/26/23 Rx furosemide 20 mg tablet 20 mg PO QAM #10 tabs 03/26/23 03/26/23 Rx mirtazapine 15 mg tablet 15 mg PO DAILY #30 tabs 03/26/23 03/26/23 Rx polyethylene glycol 3350 17 17 g PO DAILY #238 grams 03/26/23 03/26/23 Rx gram/dose oral powder (Miralax) Allergies Allergy/AdvReac Type Severity Reaction Status Date / Time No Known Allergies Allergy Verified 03/31/23 10:51 Vital Signs Vital Signs - 24 hr 03/31/23 11:01 03/31/23 11:02 03/31/23 11:16 Temperature 98.6 F Pulse Rate 86 87 82 Respiratory Rate 30 H 28 H 16 Blood Pressure 153/76 H 153/76 H 137/73 Pulse Oximetry 95 97 97 03/31/23 11:31 03/31/23 11:45 03/31/23 12:01 Temperature Pulse Rate 80 82 80 Respiratory Rate 15 23 H 23 H Blood Pressure 132/63 142/67 H Pulse Oximetry 96 97 03/31/23 12:33 03/31/23 13:01 03/31/23 13:31 Temperature Pulse Rate 75 79 79 Respira
[2023-03-31] MEDS: POTASSIUM CHLORIDE 20 MEQ TABLET 40 MEQ PO (14:28)
--- NOTE | 2023-03-31 15:01 | ADMGEN ---
This patient, Carey Isaac, was admitted to [address] [place] [address] Room 332-02. Patient/family oriented to hospital policies and general routines including ID bracelet, bed and alarms, visiting hours, pain management, procedures, bathroom and other care routines, personal items, smoking policy, room service/diet, and visiting hours. Information on how to activate the Rapid Response Team has been discussed. Patient/Family are encouraged to report perceived risks to care and to ask questions if they do not understand what they are told or what they should do.
[2023-03-31] MEDS: ACETAMINOPHEN 325 MG TABLET 650 MG PO (21:31)
[2023-03-31] MEDS: HYDROcodone/acetaminophen (*CRX) 5-325 MG TABLET 1 TAB PO (22:47)
[2023-04-01] VITALS (8 sets, daily range): BP systolic 111–149; BP diastolic 48–78; PULSE 63–81; RESP 14–20; TEMP 35.8–36.6; O2SAT 96–100
[2023-04-01 06:33] LABS: Eosinophils Absolute Auto 0.1 K/mm3 (0-0.3); Eosinophils Percent Auto 2.3 % (0-4.4); Hematocrit 27.1 % (37.0-47.0); Hemoglobin 7.4 g/dL (12.0-15.0); Immature Granulocyte Absolute 0.01 K/mm3 (0.00-0.031); Immature Granulocyte Percent A 0.3 % (0-0.5); Immature Platelet Fraction Pct 6.4 % (0.9-11.2); Lymphocytes Absolute Auto 0.68 K/mm3 (0.9-3.2); Lymphocytes Percent Auto 22.1 % (18.3-44.2); Mean Corpuscular HGB Conc 27.3 g/dl (32-36); Mean Corpuscular Hemoglobin 19.2 pg (26-34); Mean Corpuscular Volume 70.2 fl (80-100); Monocytes Absolute Auto 0.4 K/mm3 (0.1-0.6); Neutrophils Absolute Auto 1.9 K/mm3 (1.3-6.7); Neutrophils Percent Auto 61.3 % (45.5-73.1); Platelet Count Result 108 k/mm3 (150-375); Red Blood Count 3.86 M/mm3 (4.2-5.4); Red Cell Distribution Width 22.1 % (11.5-14.5); White Blood Count 3.1 K/mm3 (4.5-10.0)
[2023-04-01 06:47] LABS: Anion Gap 3 mmol/L (8-16); Blood Urea Nitrogen 22 mg/dL (7-17); Calcium 7.8 mg/dL (8.4-10.2); Carbon Dioxide 29 mmol/L (22-30); Chloride 101 mmol/L (98-107); Estimated CRCL calculation 52 ml/min; Estimated Glomerular Filt Rate > 60; Glucose 107 mg/dL (65-110); Potassium 3.8 mmol/L (3.4-5.0); Sodium 133 mmol/L (137-145)
[2023-04-01 07:27] LABS: Burr Cells 1+ (NORMAL); Hypochromasia 2+ (NORMAL); Ovalocytes 1+ (NORMAL); Poikilocytosis 2+ (NORMAL); Schistocytes Rare (NORMAL)
[2023-04-01] MEDS: CYANOCOBALAMIN 1,000 MCG TABLET 5000 MCG PO (10:31)
[2023-04-01] MEDS: FUROSEMIDE 20 MG TABLET PO (10:33)
[2023-04-01] MEDS: METOPROLOL SUCCINATE EXT REL 50 MG TABCR PO (10:34)
[2023-04-01] MEDS: polyethylene glycoL 3350 17 GM POWD.PACK PO (10:35)
[2023-04-01] MEDS: MIRTAZAPINE 15 MG TABLET PO (10:35)
[2023-04-01] MEDS: POLYSACCHARIDE IRON COMPLEX 150 MG CAPSULE 300 MG PO (10:35)
[2023-04-01] MEDS: PANTOPRAZOLE 40 MG TABLET PO (10:35)
--- NOTE | 2023-04-01 11:53 | PM.IMPN ---
Progress Note: A&P Assessment and Plan (1) Altered mental status: Code(s): R41.82 - Altered mental status, unspecified Status: Acute Assessment and Plan: resolved. Patient is back to baseline mental status. This was likely secondary to seizure. neuro checks Q shift (2) Acute UTI: Code(s): N39.0 - Urinary tract infection, site not specified Status: Acute Assessment and Plan: continue IV Rocephin. Follow urine cultures. This could have precipitated the seizure (3) Seizure: Code(s): R56.9 - Unspecified convulsions Status: Acute Assessment and Plan: single episode. No history of seizures. Continue to monitor. CT head negative. Neuro checks Q shift. no further seiure. withhx of caner, will order mri brain (4) Acute hypokalemia: Code(s): E87.6 - Hypokalemia Status: Acute Assessment and Plan: replace with oral supplementation (5) Hepatocellular carcinoma: Code(s): C22.0 - Liver cell carcinoma Status: Acute Assessment and Plan: outpatient follow-up with Oncology (6) Pleural effusion: Code(s): J90 - Pleural effusion, not elsewhere classified Status: Acute Assessment and Plan: moderate right-sided pleural effusion. Likely secondary to hepatocellular carcinoma. us guided thoracentesis orderd, which was alrady planned as op basis. follow pleural fluid analysis. ordered the labs and cytology Plan code is DNR DVT prophylaxis Lovenox Subjective Date/time seen: 04/01/23 11:53 Interval history: history reivewed. no new complaints. hurts inher low back. no fever, chills. Review of Systems Review of Systems: All systems reviewed & are unremarkable except as noted in HPI and below Exam Narrative: General:?chronically-appearing female , thin built; in no acute distress. HEENT:??PERRL, EOMI. Sclera anicteric. Tacky mucous membranes. Neck:??Supple. Respiratory:?Respirations are nonlabored and she is speaking full sentences. Lung sounds are a bit diminished at the right base but otherwise clear to auscultation. Cardiovascular:??Regular rate and rhythm with S1-S2. Gastrointestinal:??Abdomen is nondistended with positive bowel sounds. Liver feels a bit enlarged.? She is tender to palpation throughout the right upper quadrant. No guarding or rebound tenderness. No CVA tenderness. Skin:??Warm and dry.? No rash or lesions on limited exam. Extremities:??No cyanosis or clubbing. Mild rut ankle edema bilaterally. Radial and pedal pulses intact. Neurological:??Alert and oriented.? Cranial nerves 2-12 are grossly intact. Generalized weakness without focal findings. Psychiatric:??Pleasant and cooperative.? Appropriate mood. Objective Data Vital Signs Vital Signs: Vital Signs - 24 hr 03/31/23 12:01 03/31/23 12:33 03/31/23 13:01 Temperature Pulse Rate 80 75 79 Respiratory Rate 23 H 29 H 30 H Blood Pressure 142/67 H 142/62 H 143/69 H Pulse Oximetry 97 98 97 Oxygen Delivery 03/31/23 13:31 03/31/23 14:01 03/31/23 14:35 Temperature Pulse Rate 79 78 80 Respiratory Rate 22 H 26 H 16 Blood Pressure 126/70 109/69 128/82 Pulse Oximetry 97 97 97 Oxygen Delivery 03/31/23 14:59 03/31/23 15:00 03/31/23 21:29 Temperature 97.1 F L 97.9 F Pulse Rate 78 85 Respiratory Rate 14 14 Blood Pressure 136/51 L 137/72 Pulse Oximetry 99 97 Oxygen Delivery Room Air 03/31/23 20:00 04/01/23 05:18 03/31/23 20:00 Temperature 97.3 F L Pulse Rate 64 81 Respiratory Rate 14 Blood Pressure 111/48 L Pulse Oximetry 100 Oxygen Delivery Room Air 04/01/23 00:00 04/01/23 04:00 Temperature Pulse Rate 63 63 Respiratory Rate Blood Pressure Pulse Oximetry Oxygen Delivery Intake/Output Intake/Output: Intake & Output 03/29/23 03/30/23 03/31/23 04/01/23 23:59 23:59 23:59 23:59 Intake Total 410 740 Balance 410 740 Meds/Results Medications: Active Medication
[2023-04-01] MEDS: HYDROcodone/acetaminophen (*CRX) 5-325 MG TABLET 1 TAB PO (14:34)
[2023-04-01] MEDS: oxyCODONE HCL (*CRX) 5 MG TAB IR 10 MG PO (20:43)
[2023-04-02 06:00] VITALS: BP 120/70; PULSE 69; RESP 18; TEMP 36.3; O2SAT 96
[2023-04-02 06:25] LABS: Basophils Absolute Auto 0.1 K/mm3 (0.0-0.1); Basophils Percent Auto 1.2 % (0.2-1.2); Eosinophils Absolute Auto 0.1 K/mm3 (0-0.3); Eosinophils Percent Auto 2.7 % (0-4.4); Hematocrit 34.9 % (37.0-47.0); Hemoglobin 9.5 g/dL (12.0-15.0); Immature Granulocyte Absolute 0.01 K/mm3 (0.00-0.031); Immature Granulocyte Percent A 0.2 % (0-0.5); Immature Platelet Fraction Pct 7.8 % (0.9-11.2); Lymphocytes Absolute Auto 0.77 K/mm3 (0.9-3.2); Lymphocytes Percent Auto 18.7 % (18.3-44.2); Mean Corpuscular HGB Conc 27.2 g/dl (32-36); Mean Corpuscular Hemoglobin 19.3 pg (26-34); Mean Corpuscular Volume 71.1 fl (80-100); Monocytes Absolute Auto 0.4 K/mm3 (0.1-0.6); Monocytes Percent Auto 10.4 % (2.6-8.5); Neutrophils Absolute Auto 2.8 K/mm3 (1.3-6.7); Neutrophils Percent Auto 66.8 % (45.5-73.1); Platelet Count Result 137 k/mm3 (150-375); Red Blood Count 4.91 M/mm3 (4.2-5.4); Red Cell Distribution Width 22.7 % (11.5-14.5); White Blood Count 4.1 K/mm3 (4.5-10.0)
[2023-04-02 06:40] LABS: Alanine Aminotransferase 25 U/L (6-35); Albumin Level 3.2 g/dL (3.5-5.1); Alkaline Phosphatase 273 U/L (38-126); Anion Gap 5 mmol/L (8-16); Aspartate Amino Transferase 69 U/L (14-36); Bilirubin,Total 0.8 mg/dL (0.2-1.3); Blood Urea Nitrogen 20 mg/dL (7-17); Calcium 8.1 mg/dL (8.4-10.2); Carbon Dioxide 28 mmol/L (22-30); Chloride 100 mmol/L (98-107); Estimated CRCL calculation 45 ml/min; Estimated Glomerular Filt Rate > 60; Glucose 106 mg/dL (65-110); Magnesium 2.2 mg/dL (1.6-2.3); Potassium 3.9 mmol/L (3.4-5.0); Sodium 133 mmol/L (137-145)
[2023-04-02 06:54] LABS: Poikilocytosis 2+ (NORMAL)
[2023-04-02 06:55] LABS: Anisocytosis 1+ (NORMAL); Burr Cells 2+ (NORMAL); Ovalocytes 1+ (NORMAL); Schistocytes Rare (NORMAL)
[2023-04-02] MEDS: oxyCODONE HCL (*CRX) 5 MG TAB IR 10 MG PO (09:42)
--- NOTE | 2023-04-02 10:36 | WPDNEUROLOGY ---
Neurology EEG Report General Information Date of Study: 04/02/23 TEST EEG DIAGNOSIS seizures CONDITION OF RECORDING drowsy and sleep EEG NUMBER [id number] CLINICAL HISTORY patient reports she had a seizure yesterday, says she has never had 1 before. Did start on a new pain medication yesterday morning EEG DESCRIPTION fold record consists of medium voltage 2 to 3 hertz per 2nd delta activity admixed with medium voltage 4 to 5 hertz per 2nd theta activity. Hyperventilation not done. Photic stimulation not done. Non paroxysmal. Nonfocal. Nonlateralizing. IMPRESSION Abnormal record due to the presence of bihemispheric slow activity in the range of theta and delta without any evidence of paroxysmal discharge. This abnormality consistent with diffuse organic or metabolic encephalopathy or postictal state though there is no evidence of any active seizures throughout the tracing. Clinical correlation recommended.
--- NOTE | 2023-04-02 11:43 | PM.IMPN ---
Progress Note: A&P Assessment and Plan (1) Altered mental status: Code(s): R41.82 - Altered mental status, unspecified Status: Acute Assessment and Plan: resolved. Patient is back to baseline mental status. This was likely secondary to seizure. neuro checks Q shift (2) Acute UTI: Code(s): N39.0 - Urinary tract infection, site not specified Status: Acute Assessment and Plan: continue IV Rocephin. Follow urine cultures. This could have precipitated the seizure (3) Seizure: Code(s): R56.9 - Unspecified convulsions Status: Acute Assessment and Plan: single episode. No history of seizures. Continue to monitor. CT head negative. Neuro checks Q shift. no further seiure. withhx of caner, will order mri brain (4) Acute hypokalemia: Code(s): E87.6 - Hypokalemia Status: Acute Assessment and Plan: replace with oral supplementation (5) Hepatocellular carcinoma: Code(s): C22.0 - Liver cell carcinoma Status: Acute Assessment and Plan: outpatient follow-up with Oncology (6) Pleural effusion: Code(s): J90 - Pleural effusion, not elsewhere classified Status: Acute Assessment and Plan: moderate right-sided pleural effusion. Likely secondary to hepatocellular carcinoma. us guided thoracentesis orderd, which was alrady planned as op basis. follow pleural fluid analysis. ordered the labs and cytology Plan code is DNR DVT prophylaxis Lovenox Subjective Date/time seen: 04/02/23 11:43 Interval history: no new complaints Exam Narrative: General:?chronically-appearing female , thin built; in no acute distress. HEENT:??PERRL, EOMI. Sclera anicteric. Tacky mucous membranes. Neck:??Supple. Respiratory:?Respirations are nonlabored and she is speaking full sentences. Lung sounds are a bit diminished at the right base but otherwise clear to auscultation. Cardiovascular:??Regular rate and rhythm with S1-S2. Gastrointestinal:??Abdomen is nondistended with positive bowel sounds. Liver feels a bit enlarged.? She is tender to palpation throughout the right upper quadrant. No guarding or rebound tenderness. No CVA tenderness. Skin:??Warm and dry.? No rash or lesions on limited exam. Extremities:??No cyanosis or clubbing. Mild rut ankle edema bilaterally. Radial and pedal pulses intact. Neurological:??Alert and oriented.? Cranial nerves 2-12 are grossly intact. Generalized weakness without focal findings. Psychiatric:??Pleasant and cooperative.? Appropriate mood. Objective Data Vital Signs Vital Signs: Vital Signs - 24 hr 04/01/23 14:00 04/01/23 12:00 04/01/23 16:00 Temperature 96.4 F L Pulse Rate 80 81 76 Respiratory Rate 20 Blood Pressure 149/78 H Pulse Oximetry 96 Oxygen Delivery 04/01/23 20:00 04/01/23 22:00 04/02/23 06:00 Temperature 97.8 F 97.3 F L Pulse Rate 75 69 Respiratory Rate 20 18 Blood Pressure 142/77 H 120/70 Pulse Oximetry 99 96 Oxygen Delivery Room Air Intake/Output Intake/Output: Intake & Output 03/30/23 03/31/23 04/01/23 04/02/23 23:59 23:59 23:59 23:59 Intake Total 410 1802 168 Balance 410 1802 168 Meds/Results Medications: Active Medications Generic Name Dose Route Start Last Admin Trade Name Freq PRN Reason Stop Dose Admin Acetaminophen 650 mg 03/31/23 14:17 03/31/23 21:31 Acetaminophen 325 Mg Tablet PO 650 mg Q4H PRN Administration Mild Pain (1-3) or Fever Cyanocobalamin 5,000 mcg 04/01/23 09:00 04/01/23 10:31 Cyanocobalamin 1,000 Mcg Tablet PO 05/01/23 08:59 5,000 mcg DAILY ELMER Administration Enoxaparin Sodium 40 mg 04/01/23 09:00 04/01/23 11:30 Enoxaparin 40 Mg/0.4 Ml Syringe SUB-Q Not Given DAILY ELMER Furosemide 20 mg 04/01/23 09:00 04/01/23 10:33 Furosemide 20 Mg Tablet PO 20 mg QAM ELMER Administration Ceftriaxone Sodium 1 gm in 50 mls @ 100 mls/hr 04/01/23 14:00 04/01/23 15:05
[2023-04-02] MEDS: ENOXAPARIN 40 MG/0.4 ML SYRINGE SUB-Q (12:46)
[2023-04-02] MEDS: polyethylene glycoL 3350 17 GM POWD.PACK PO (12:46)
[2023-04-02] MEDS: POLYSACCHARIDE IRON COMPLEX 150 MG CAPSULE 300 MG PO (12:47)
[2023-04-02] MEDS: PANTOPRAZOLE 40 MG TABLET PO (12:47)
[2023-04-02] MEDS: CYANOCOBALAMIN 1,000 MCG TABLET 5000 MCG PO (12:47)
[2023-04-02 12:48] VITALS: PULSE 79
[2023-04-02] MEDS: MIRTAZAPINE 15 MG TABLET PO (12:48)
[2023-04-02] MEDS: FUROSEMIDE 20 MG TABLET PO (12:48)
[2023-04-02] MEDS: METOPROLOL SUCCINATE EXT REL 50 MG TABCR PO (12:48)
[2023-04-02 12:51] VITALS: BP 110/55; PULSE 79; RESP 16; O2SAT 97
[2023-04-02 14:00] VITALS: BP 98/66; PULSE 73; RESP 24; TEMP 36.9; O2SAT 95
--- NOTE | 2023-04-02 20:08 | PC.NURSE ---
This RN completed MRI form with pt's son and daughter. Neither child was confident of pt cancer treatments. Pt did receive radiation seeds delivered via a line inserted in the right arm to the liver. Communicated with christopher Harris, who spoke with radiologist and determined we need additional information to verify MRI safety. Pt son stated that he spoke with Shaji at [facility] (treatment at [facility]), who can be reached at [phone]. Records of treatments were sent to Dr. Camacho. Dr. Baldwin was notified that we were having difficulty getting full information. Please continue to attempt to get information, and Denny will see if a different scan can be ordered.
[2023-04-02] MEDS: ACETAMINOPHEN 325 MG TABLET 650 MG PO (20:19)
[2023-04-02 22:00] VITALS: BP 136/77; PULSE 70; RESP 18; TEMP 36.4; O2SAT 96
[2023-04-03] MEDS: ACETAMINOPHEN 325 MG TABLET 650 MG PO (00:30)
[2023-04-03 05:32] VITALS: BP 111/53; PULSE 68; RESP 18; TEMP 36.4; O2SAT 96
[2023-04-03] MEDS: ENOXAPARIN 40 MG/0.4 ML SYRINGE SUB-Q (08:37)
[2023-04-03] MEDS: POLYSACCHARIDE IRON COMPLEX 150 MG CAPSULE 300 MG PO (08:37)
[2023-04-03] MEDS: CYANOCOBALAMIN 1,000 MCG TABLET 5000 MCG PO (08:37)
[2023-04-03 08:38] VITALS: PULSE 77
[2023-04-03] MEDS: METOPROLOL SUCCINATE EXT REL 50 MG TABCR PO (08:38)
[2023-04-03] MEDS: MIRTAZAPINE 15 MG TABLET PO (08:38)
[2023-04-03] MEDS: PANTOPRAZOLE 40 MG TABLET PO (08:38)
[2023-04-03] MEDS: FUROSEMIDE 20 MG TABLET PO (08:38)
[2023-04-03] MEDS: polyethylene glycoL 3350 17 GM POWD.PACK PO (08:40)
--- NOTE | 2023-04-03 10:19 | PM.DS ---
DS: Admitting Diagnosis Discharge Date April 03, 2023 Admitting Diagnosis UTI DS: Discharge Diagnosis Discharge Diagnosis (1) Altered mental status: Code(s): R41.82 - Altered mental status, unspecified Status: Acute Assessment and Plan: resolved. Patient is back to baseline mental status. appreciate neurology input. (2) Acute UTI: Code(s): N39.0 - Urinary tract infection, site not specified Status: Acute Assessment and Plan: continue IV Rocephin. Follow urine cultures. This could have precipitated the seizure (3) Seizure: Code(s): R56.9 - Unspecified convulsions Status: Acute Assessment and Plan: single episode. No history of seizures. Continue to monitor. CT head negative. Neuro checks Q shift. no further seiure. withhx of caner, MRI of the brain was unable to be obtained. (4) Acute hypokalemia: Code(s): E87.6 - Hypokalemia Status: Acute Assessment and Plan: replace with oral supplementation (5) Hepatocellular carcinoma: Code(s): C22.0 - Liver cell carcinoma Status: Acute Assessment and Plan: outpatient follow-up with Oncology (6) Pleural effusion: Code(s): J90 - Pleural effusion, not elsewhere classified Status: Acute Assessment and Plan: moderate right-sided pleural effusion. Likely secondary to hepatocellular carcinoma. us guided thoracentesis orderd, which was alrady planned as op basis. follow pleural fluid analysis. ordered the labs and cytology Plan code is DNR DVT prophylaxis Lovenox DS: Summary Hospital Course Hospital Course: Admitted for altered mental status, near syncope. Resolved almost immediately. Likely related to urinary tract infection. Questionable history of seizure. Appreciate your Neurology input. Patient will need follow-up with Neurology. Time Spent with Patient Time attestation: Total time spent providing and/or coordinating discharge services: Exam Narrative: General:?chronically-appearing female , thin built; in no acute distress. HEENT:??PERRL, EOMI. Sclera anicteric. Tacky mucous membranes. Neck:??Supple. Respiratory:?Respirations are nonlabored and she is speaking full sentences. Lung sounds are a bit diminished at the right base but otherwise clear to auscultation. Cardiovascular:??Regular rate and rhythm with S1-S2. Gastrointestinal:??Abdomen is nondistended with positive bowel sounds. Liver feels a bit enlarged.? She is tender to palpation throughout the right upper quadrant. No guarding or rebound tenderness. No CVA tenderness. Skin:??Warm and dry.? No rash or lesions on limited exam. Extremities:??No cyanosis or clubbing. Mild rut ankle edema bilaterally. Radial and pedal pulses intact. Neurological:??Alert and oriented.? Cranial nerves 2-12 are grossly intact. Generalized weakness without focal findings. Psychiatric:??Pleasant and cooperative.? Appropriate mood. DS: Data Data Completed and Pending Pending studies at discharge: Pending at discharge 04/01/23 15:25 Cytology [PTH] Routine Labs on day of discharge: Preliminary micro results at discharge 03/31/23 12:11 Blood Culture - Preliminary Blood 03/31/23 12:11 Blood Culture - Preliminary Blood Discharge Plan Discharge Attending physician on discharge: Robert Baldwin Discharging Clinician: Robert Baldwin Patient Disposition: Home, Self-Care Activity: as tolerated Diet: as tolerated Patient Instructions: Antibiotic Form Stand Alone Forms: General Discharge Information Follow-up/Referrals: Dereck Duncan MD [Primary Care Provider] - Discharge Medications: New cefdinir 300 mg capsule 300 mg PO Q12H Qty: 10 0RF Continued trazodone 150 mg tablet 150 mg PO QHS Hold Instructions: Patient Condition pantoprazole 40 mg tablet,delayed release (DR/EC) 40 mg PO QAM polysaccharide iron complex 150 mg i
== END 2023-04-03 11:40 | disposition home or self-care (01) ==
LOC: ANHED 13:31 → ANH3MEDSUR 14:51
PROVIDERS: Internal Medicine; Admitting Provider Hospitalist; Emergency Provider Emergency Medicine; PCP Family Medicine; Visit Provider Chiropractor
DX: R41.82 Altered mental status, unspecified (principal); N39.0 Urinary tract infection, site not specified; R56.9 Unspecified convulsions; E87.6 Hypokalemia; C22.0 Liver cell carcinoma; C79.89 Secondary malignant neoplasm of other specified sites; J90 Pleural effusion, not elsewhere classified; D64.9 Anemia, unspecified; M19.90 Unspecified osteoarthritis, unspecified site; K74.60 Unspecified cirrhosis of liver; I25.10 Atherosclerotic heart disease of native coronary artery without angina pectoris; I11.9 Hypertensive heart disease without heart failure; K27.9 Peptic ulcer, site unspecified, unspecified as acute or chronic, without hemorrhage or perforation; R90.82 White matter disease, unspecified; E11.9 Type 2 diabetes mellitus without complications; F41.8 Other specified anxiety disorders; Z92.3 Personal history of irradiation; Z87.891 Personal history of nicotine dependence; Z79.891 Long term (current) use of opiate analgesic; Z79.899 Other long term (current) drug therapy; Z83.3 Family history of diabetes mellitus; Z82.49 Family history of ischemic heart disease and other diseases of the circulatory system
CPT/HCPCS: 32555; 36415; 70450; 71045; 80048; 80053; 81001; 83605; 83735; 85025; 85055; 85610; 85730; 87040; 87086; 87088; 93005; 95816; 96365; 96372; 96375; 99285; A9270; G0378; J0696; J1650; J3480

== ENCOUNTER 2023-04-08 10:08 | Outpatient (CLI) | payer MEDICARE, SELFPAY ==
[2023-04-06 13:16] VITALS: BMI 21.4
--- NOTE | 2023-04-06 13:17 | PC.NURSE ---
Pre Radiology instructions Report to the radiology dept. on date __04/08/23___ at time ___1000____ for procedure Time: _1030___ YOU MAY BE MONITORED AT HOSPITAL FOR UP TO 4 HOURS AFTER YOUR PROCEDURE. A visitor will be allowed to accompany the patient into the hospital. You and your visitor will be asked to self-screen and do not enter if you have any COVID symptoms. A mask is OPTIONAL within the hospital. Patients are to have no food or drink 8 hours prior to procedure time (0320 AM) Driving will be restricted after the procedure, you must have a person to drive you home. Labs will be drawn in preop area and once reviewed, you will be taken to radiology area for procedure. When the procedure is completed, you will be taken to outpatient where you will be monitored for several hours. You may have one visitor in this area. Other than holding anti-coagulants, patient may take other medication(s) as scheduled. Prior to your appointment date patients are instructed to hold anti-coagulants after discussing with ordering provider to stop. If unable to discontinue anti-coagulants please notify radiologist. ? No aspirin or warfarin (Coumadin) for 7 days prior to the procedure. ? No clopidogrel (Plavix), ticagrelor (Brilinta), prasugrel (Effient) or dabigatran (Pradaxa) for 5 days prior to the procedure. ? No rivaroxaban (Xarelto), apixaban (Eliquis), dipyridamole (Aggrenox or Persantine) or cilostazol (Pletal) for 2 days prior to the procedure. Medications to discontinue per physician: ___N/A Date to take last dose: Please leave all valuables, including medications, at home the day of procedure. The hospital will not accept responsibility for valuables. Wear comfortable, loose fitting clothing.? Follow any additional instructions given to you from ordering provider. Telephone instructions given to _[facility]_and asked if any additional questions and then verbalized understanding. Patient advised to call scheduling provider office or registration scheduling [phone] if any additional questions.
[2023-04-08] VITALS (7 sets, daily range): BP systolic 102–116; BP diastolic 55–64; PULSE 72–76; RESP 16–18; O2SAT 94–97
--- NOTE | ~2023-04-08 | XR_ITS ---
Portable chest x-ray Comparison: None Clinical History: Postthoracentesis Findings: Minimal right basilar atelectatic change noted. No pleural effusion or pneumothorax. Card iomediastinal silhouette is unremarkable. Bones and soft tissues are unremarkable. Impression: No pneumothorax. Minimal right basilar atelectatic change. Reviewed, dictated and finalized at [facility]. Impression: No pneumothorax. Minimal right basilar atelectatic change.
--- NOTE | ~2023-04-08 | US_ITS ---
EXAMINATION: US thoracentesis DATE: 04/08/2023 11:40 INDICATION: Right pleural effusion TECHNIQUE: The procedure and its risks and benefits were discussed with the patient. Potential risks discussed included bleeding, infection, and pneumothorax. The patient understood the risks and agreed to proceed. The skin was prepped and draped in sterile fashion. 1% lidocaine was used for local anes thesia. Under ultrasound guidance, a 5 Fr catheter with trochar was advanced into the right pleural e ffusion. Fluid was aspirated. The catheter was removed, and a dressing was applied. There were no imm ediate complications. FINDINGS: Ultrasound images demonstrate a small right pleural effusion and the catheter within the fluid. IMPRESSION: 1. Successful ultrasound-guided thoracentesis yielding 550 mL of clear riki-colored fluid. Reviewed, dictated and finalized at location A. IMPRESSION: 1. Successful ultrasound-guided thoracentesis yielding 550 mL of clear riki-c olored fluid.
== END 2023-04-08 13:39 | disposition home or self-care (01) ==
PROVIDERS: Radiology Diagnostic Radiology; PCP Family Medicine; Visit Provider Family Medicine
DX: J90 Pleural effusion, not elsewhere classified (principal); C22.0 Liver cell carcinoma
CPT/HCPCS: 32555; 88108; 88305